=== PATIENT | male | born 1940 | race Caucasian/White ===

== ENCOUNTER 2016-03-15 17:12 | Emergency (ER) | payer OTHER ==
[2016-03-15 17:24] VITALS: TEMP 98.1; BMI 30.4
--- NOTE | 2016-03-15 18:39 | PDOC ---
History of Present Illness - General History Source: Patient Exam Limitations: No Limitations - History of Present Illness Initial Comments: 03/15/16 18:43 The patient is a 76 year old male with history of hypertension, hyperlipidemia, IDDM, cirrhosis of the liver, liver CA, who presents to the ED complaining of 3 days of coughing with chest congestion and associated nausea. Today he noted blood streaked sputum, prompting him to come to the ED. He also complains of left chest wall pain secondary to cough, but states he has been taking Ibuprofen with relief. No fever or chills. No vomiting or diarrhea. PCP: Dr. Ryan Diaz <Yue Carlson - Last Filed: 03/15/16 18:43> <Denisse Hale - Last Filed: 03/15/16 21:31> <Lashell Gallegos - Last Filed: 03/16/16 02:07> - General Chief Complaint: Shortness of Breath Stated Complaint: COUGH Time Seen by Provider: 03/15/16 18:28 Past History <Yue Carlson - Last Filed: 03/15/16 18:43> <Denisse Hale - Last Filed: 03/15/16 21:31> - Past Medical History Diabetes: Yes (IDDM, ESOPHAGEAL VARICES) HTN: Yes Hypercholesterolemia: Yes Liver Disease: Yes (CIRRHOSIS, HEPATIC ENCEPHALOPATHY,liver ca) - Immunization History Immunization Up to Date: Yes - Psycho/Social/Smoking Cessation Hx Anxiety: No Suicidal Ideation: No Smoking Status: No Smoking History: Former smoker Have you smoked in the past 12 months: No Number of Cigarettes Smoked Daily: 2,004 If you are a former smoker, when did you quit?: 2003 Information on smoking cessation initiated: No Hx Alcohol Use: No Drug/Substance Use Hx: No Substance Use Type: None <Lashell Gallegos - Last Filed: 03/16/16 02:07> - Past Medical History Allergies/Adverse Reactions: Allergies Allergy/AdvReac Type Severity Reaction Status Date / Time No Known Allergies Allergy Verified 03/15/16 17:19 Home Medications: Ambulatory Orders Omeprazole [Prilosec] 40 mg PO DAILY 04/22/14 Rifaximin [Xifaxan -] 550 mg PO BID 05/12/15 Tamsulosin HCl [Flomax -] 0.4 mg PO DAILY 06/09/15 Acetaminophen [Tylenol] 650 mg PO Q4H PRN #15 tablet 02/12/16 Furosemide [Lasix -] 20 mg PO DAILY 02/12/16 Insulin Glargine,Hum.rec.anlog [Toujeo Solostar] 15 unit SQ DAILY 02/12/16 Oxybutynin Chloride [Ditropan Xl] 10 mg PO DAILY 02/12/16 Spironolactone [Aldactone -] 100 mg PO DAILY 02/12/16 Albuterol Sulfate Inhaler - [Ventolin Hfa Inhaler -] 1 - 2 inh PO QID PRN #1 inhaler 03/15/16 Azithromycin [Zithromax -] 250 mg PO UTDICT #6 tab 03/15/16 Prednisone [Deltasone -] 20 mg PO DAILY #3 tablet 03/15/16 Review of Systems - Review of Systems Able to Perform ROS?: Yes Comments:: 03/15/16 18:48 CONSTITUTIONAL: Absent: fever, chills, diaphoresis, loss of appetite HEENT: Absent: rhinorrhea, nasal congestion, throat pain, throat swelling, difficulty swallowing, mouth swelling, ear pain, eye pain, visual Changes CARDIOVASCULAR: Absent: chest pain, syncope, palpitations, irregular heart rate, lightheadedness , peripheral edema RESPIRATORY: Present: cough, chest congestion, blood streaked sputum x 1 day Absent: shortness of breath, dyspnea with exertion, orthopnea, wheezing, stridor GASTROINTESTINAL: Present: nausea Absent: abdominal pain, abdominal distension, nausea, vomiting, diarrhea, constipation, melena, hematochezia GENITOURINARY: Absent: dysuria, frequency, urgency, hesitancy, hematuria, flank pain, genital pain MUSCULOSKELETAL: Absent: myalgia, arthralgia, joint swelling SKIN: Absent: rash, itching, pallor HEMATOLOGIC/IMMUNOLOGIC: Absent: easy bleeding, easy bruising, lymphadenopathy, frequent infections ENDOCRINE: Absent: unexplained weight gain, unexplained weight loss, heat intolerance, cold intolerance NEUROLOGIC: Absent: headache, focal weakness or paresthesias, dizziness, unsteady gait, seizure, mental status changes, bladder or bowel incontinence PSYCHIATRIC: Absent: anxiety, depression, suicidal or homicidal ideation, hallucinations. <Yue Carlson - Last Filed: 01/16/17 18:43> *Physical Exam - Vital Signs Last Vital Signs Temp Pulse Resp BP Pulse Ox 98.1 F 70 18 126/71 100 03/15/16 17:21 03/15/16 17:21 03/15/16 17:21 03/15/16 17:21 03/15/16 17:21 - Physical Exam Comments: 03/15/16 18:50 GENERAL: Well developed, well nourished. Awake and alert. No acute distress. Coughing throughout exam. HEENT: Normocephalic, atraumatic. PERRLA, EOMI. No conjunctival pallor. Sclera are non- icteric. Moist mucous membranes. Oropharynx is clear. NECK: Supple. Full ROM. No JVD. Carotid pulses 2+ and symmetric, without bruits. No thyromegaly. No lymphadenopathy. CARDIOVASCULAR: Regular rate and rhythm. No murmurs, rubs, or gallops. Distal pulses are 2+ and symmetric. PULMONARY: No evidence of respiratory distress. Lungs clear to auscultation bilaterally. No wheezing, rales or rhonchi. ABDOMINAL: Soft. Non-tender. Non-distended. No rebound or guarding. No organomegaly. Normoactive bowel sounds. MUSCULOSKELETAL Normal range of motion at all joints. No bony deformities or tenderness. No CVA tenderness. EXTREMITIES: No cyanosis. No clubbing. No edema. No calf tenderness. SKIN: Warm and dry. Normal capillary refill. No rashes. No jaundice. NEUROLOGICAL: Alert, awake, appropriate. Cranial nerves 2-12 intact. No deficits to light touch and temperature in face, upper extremities and lower extremities. No motor deficits in the in face, upper extremities and lower extremities. Normoreflexic in the upper and lower extremities. Normal speech. Toes are down- going bilaterally. Gait is normal without ataxia. PSYCHIATRIC: Cooperative. Good eye contact. Appropriate mood and affect. <Yue Carlson - Last Filed: 03/15/16 18:43> - Vital Signs Last Vital Signs Temp Pulse Resp BP Pulse Ox 98.1 F 70 18 126/71 100 03/15/16 17:21 03/15/16 17:21 03/15/16 17:21 03/15/16 17:21 03/15/16 17:21 <Denisse Hale - Last Filed: 03/15/16 21:31> - Vital Signs Last Vital Signs Temp Pulse Resp BP Pulse Ox 98.1 F 70 18 126/71 100 03/15/16 17:21 03/15/16 17:21 03/15/16 17:21 03/15/16 17:21 03/15/16 17:21 <ElLashelljessica Grady - Last Filed: 03/16/16 02:07> ED Treatment Course - LABORATORY CBC & Chemistry Diagram: 03/15/16 19:04 03/15/16 19:04 - ADDITIONAL ORDERS Additional order review: Laboratory Results 03/15/16 19:04 Sodium 134 L Potassium 4.9 Chloride 103 Carbon Dioxide 24 Anion Gap 7 L BUN 17 D Creatinine 1.3 D Creat Clearance w eGFR 53.53 Random Glucose 347 H* Calcium 7.8 L Total Bilirubin 3.0 H AST 75 H D ALT 28 D Alkaline Phosphatase 421 H D Total Protein 6.2 L Albumin 2.2 L 03/15/16 19:05 Influenza Types A,B Antigen ([place]ADES) - Final Nasopharyngeal Swab - Final 03/15/16 19:04 RBC 3.98 L MCV 97.2 H MCHC 33.1 RDW 16.6 H MPV 11.7 H D Neutrophils % 77.1 D Lymphocytes % 9.8 D Monocytes % 11.2 H Eosinophils % 1.5 Basophils % 0.4 - RADIOLOGY Radiograph Interpretation: 03/15/16 21:32 Chest X-Ray Allowing for technical differences no obvious interval change is seen in comparison to a prior radiographic study of 02/12/2016. There is no discrete infiltrate or pleural effusion. The interstitial markings are again noted to be mildly prominent bilaterally which could be on the basis of chronic lung disease. CT evaluation may be considered, nonemergent unless otherwise clinically indicated. Cardiac size appears borderline in transverse diameter. The hector and mediastinum appear unremarkable as visualized. Impression: As discussed. Reported By: Palmer Tadeo MD - Medications Given in the ED: ED Medications Discontinued Medications Generic Name Dose Route Start Last Admin Trade Name Freq PRN Reason Stop Dose Admin Guaifenesin 10 ml 03/15/16 19:05 03/15/16 19:18 Robitussin Dm - PO 03/15/16 19:06 10 ml ONCE ONE Administration <Denisse Hale - Last Filed: 03/15/16 21:31> - LABORATORY CBC & Chemistry Diagram: 03/15/16 19:04 03/15/16 19:04 <Lashell Gallegos - Last Filed: 03/16/16 02:07> Medical Decision Making - Medical Decision Making 03/16/16 02:05 76-year-old male presents with family because of for 5 days of a junky cough. Didn't have a fever. He has some coarse rhonchi on exam. Patient was not febrile and he was not hypoxic Patient has past medical history of liver cirrhosis, diabetes Chest x-ray did not have any infiltrates or consolidations or effusions, influenza culture was negative CBC was within normal limits Chemistry showed a hyperglycemia patient was given insulin Patient received albuterol, steroids and was started on Zithromax <Lasehll Gallegos - Last Filed: 03/16/16 02:07> *DC/Admit/Observation/Transfer - Attestations Scribe Attestion: 03/15/16 18:50 Documentation prepared by Yue Carlson, acting as hospital medical assistant for Lashell Gallegos MD. <Yue Carlson - Last Filed: 03/15/16 18:43> <Denisse Hale - Last Filed: 03/15/16 21:31> <Lashell Gallegos - Last Filed: 03/16/16 02:07> Diagnosis at time of Disposition: Acute bronchitis Qualifiers: Bronchitis organism: unspecified organism Qualified Code(s): J20.9 - Acute bronchitis, unspecified - Discharge Dispostion Disposition: HOME Condition at time of disposition: Stable - Prescriptions Prescriptions: Prednisone [Deltasone -] 20 mg PO DAILY #3 tablet Albuterol Sulfate Inhaler - [Ventolin Hfa Inhaler -] 1 - 2 inh PO QID PRN #1 inhaler PRN Reason: Wheezing Azithromycin [Zithromax -] 250 mg PO UTDICT #6 tab - Referrals Referrals: STAFF,NOT ON [Primary Care Provider] - - Patient Instructions Printed Discharge Instructions: DI for Acute Bronchitis Additional Instructions: Please followup with your primary physician this week. If you have any worsening symptoms or for new concerning symptoms return to the emergency department. 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
[2016-03-15] MEDS ORDERED: guaiFENesin/D-METHORPHAN HB 10 ML UNIT-DOSE CUPS PO ONE (19:05)
[2016-03-15] MEDS ORDERED: guaiFENesin/D-METHORPHAN HB 10 ML UNIT-DOSE CUPS ONE (19:17)
[2016-03-15 19:19] LABS: BASOPHIL 0.4 % (0-2.0); EOSINOPHIL 1.5 % (0-4.5); MCH 32.2 pg (25.7-33.7); MCHC 33.1 g/dl (32.0-35.9); MEAN CELL VOLUME 97.2 fl (80-96); MEAN PLT VOLUME 11.7 fl (7.5-11.1); NEUTROPHILS 77.1 % (42.8-82.8); RDW 16.6 % (11.9-15.9); WHITE BLOOD COUNT 4.4 K/mm3 (4.0-10.0)
[2016-03-15 20:13] LABS: ALBUMIN 2.2 g/dl (3.4-5.0); CALCIUM 7.8 mg/dL (8.5-10.1); CREATININE 1.3 mg/dL (0.7-1.3); TOT PROT 6.2 g/dl (6.4-8.2)
[2016-03-15 20:22] LABS: PLATELET COUNT 40 K/MM3 (134-434)
[2016-03-15] MEDS ORDERED: ALBUTEROL SO4 2.5/IPRATROPIUM 0.5 INH SOL 3 ML VIAL.NEB. NEB ONE ×2 (21:26→21:49)
[2016-03-15] MEDS ORDERED: ALBUTEROL SO4 0.083% IH SOL 2.5 MG/3 ML VIAL.NEB. NEB ONE (21:26)
[2016-03-15] MEDS ORDERED: predniSONE 20 MG TABLET (UD) ONE (21:39)
[2016-03-15] MEDS ORDERED: HEMOQUE TEST 1 EACH EACH ONE (21:44)
[2016-03-15] MEDS ORDERED: predniSONE 20 MG TABLET (UD) PO ONE (21:50)
[2016-03-15] MEDS ORDERED: INSULIN REGULAR HUMAN 100 UNITS/ML *VIAL ONE (22:24)
[2016-03-15] MEDS ORDERED: AZITHROMYCIN 250 MG TABLET (FP) PO ONE (22:26)
[2016-03-15] MEDS ORDERED: AZITHROMYCIN 250 MG TABLET (FP) ONE (22:36)
[2016-03-15 22:37] VITALS: BP 106/55; PULSE 82
== END 2016-03-15 23:05 | disposition home or self-care (01) ==
LOC: JER 17:12
PROC: 3E0F7GC Introduction of Other Therapeutic Substance into Respiratory Tract, Via Natural or Artificial Opening (ICD-10-PCS; principal; 2016-03-15)
PROC: 3E033VG Introduction of Insulin into Peripheral Vein, Percutaneous Approach (ICD-10-PCS; 2016-03-15)
DX: J20.9 Acute bronchitis, unspecified (principal); I10 Essential (primary) hypertension; E78.00 Pure hypercholesterolemia, unspecified; E11.9 Type 2 diabetes mellitus without complications; Z79.4 Long term (current) use of insulin; K74.69 Other cirrhosis of liver; Z85.05 Personal history of malignant neoplasm of liver
CPT/HCPCS: 36415; 71020-TC; 80053; 85025; 87804; 94640; 96374; 99282-25

== ENCOUNTER 2016-03-25 11:06 | Inpatient (IN) | payer OTHER ==
--- NOTE | 2016-03-25 11:56 | PDOC ---
History of Present Illness - General History Source: Patient Exam Limitations: No Limitations - History of Present Illness Initial Comments: 03/25/16 15:25 The patient is a 76 year old male with significant past medical history of HTN, hyperlipidemia, diabetes, BPH, liver cirrhosis (lactulose 3x a day), liver ca, Guillain [place], chronic thrombocytopenia, ascites, and Alzheimer's dementia, who presents to the ED with daughter after being sent from PCP office for elevated ammonia level and increased confusion. Patient had his blood work done last week by PCP and today he came back for another visit and was sent for increased ammonia level. Patient is more sleepy today and more altered than his baseline and pt had diffficulty walking. As per daughter, the patient had elevated ammonia level in the pas but pt has been taking his lactulose TID as directed. She also notes that the patient had pneumonia last week and finished his last dose of abx on 03/21. PCP - Dr. Ryan VALENCIA - Dr. Duvall <Sophia Rodriguez - Last Filed: 03/25/16 18:01> <Luis Thompson - Last Filed: 03/25/16 19:30> - General Chief Complaint: Revisit, Lab Variance Stated Complaint: PCP SENT Time Seen by Provider: 03/25/16 11:48 Past History <Sophia Rodriguez - Last Filed: 03/25/16 18:01> - Past Medical History Diabetes: Yes (IDDM, ESOPHAGEAL VARICES) HTN: Yes Hypercholesterolemia: Yes Liver Disease: Yes (CIRRHOSIS, HEPATIC ENCEPHALOPATHY,liver ca) - Immunization History Immunization Up to Date: Yes - Psycho/Social/Smoking Cessation Hx Anxiety: No Suicidal Ideation: No Smoking Status: No Smoking History: Former smoker Have you smoked in the past 12 months: No Number of Cigarettes Smoked Daily: 2,004 If you are a former smoker, when did you quit?: 2003 Information on smoking cessation initiated: No Hx Alcohol Use: No Drug/Substance Use Hx: No Substance Use Type: None <Lusi Thompson - Last Filed: 03/25/16 19:30> - Past Medical History Allergies/Adverse Reactions: Allergies Allergy/AdvReac Type Severity Reaction Status Date / Time No Known Allergies Allergy Verified 03/25/16 11:23 Home Medications: Ambulatory Orders Omeprazole [Prilosec] 40 mg PO DAILY 04/22/14 Rifaximin [Xifaxan -] 550 mg PO BID 05/12/15 Tamsulosin HCl [Flomax -] 0.4 mg PO DAILY 06/09/15 Furosemide [Lasix -] 20 mg PO DAILY 02/12/16 Insulin Glargine,Hum.rec.anlog [Toujeo Solostar] 15 unit SQ DAILY 02/12/16 Oxybutynin Chloride [Ditropan Xl] 10 mg PO DAILY 02/12/16 Spironolactone [Aldactone -] 100 mg PO DAILY 02/12/16 Ibuprofen [Motrin -] 800 mg PO TID PRN 03/25/16 Metformin HCl 500 mg PO BID 03/25/16 Zolpidem Tartrate [Ambien] 5 mg PO HS 03/25/16 Review of Systems - Review of Systems Able to Perform ROS?: Yes Comments:: 03/25/16 15:26 CONSTITUTIONAL: No reported: Fever, Chills, Diaphoresis, Generalized Weakness, Malaise, Loss of Appetite HEENT: No reported: Rhinorrhea, Nasal Congestion, Throat Pain, Throat Swelling, Difficulty Swallowing, Mouth Swelling, Ear Pain, Eye Pain, Visual Changes CARDIOVASCULAR: No reported: Chest Pain, Syncope, Palpitations, Irregular Heart Rate, Lightheadedness, Peripheral Edema RESPIRATORY: Reported: cough No reported: Cough, Shortness of Breath, SOB with Exertion, Orthopnea, Wheezing , Stridor, Hemoptysis GASTROINTESTINAL: No reported: Abdominal Distension, abd pain, Nausea, Vomiting, Constipation, Melena, Hematochezia GENITOURINARY: No reported: Dysuria, Frequency, Urgency, Hesitancy, Flank Pain, Genital Pain MUSCULOSKELETAL: No reported: Myalgia, Arthralgia, Joint Swelling, Back pain, Neck Pain SKIN: No reported: Rash, Itching, Pallor HEMATOLOGIC/IMMUNOLOGIC: No reported: Easy Bleeding, Easy Bruising, Lymphadenopathy, Frequent infections ENDOCRINE: No reported: Unexplained Weight Gain, Unexplained Weight Loss, Heat Intolerance , Cold Intolerance NEUROLOGIC: No reported: Headache, Focal Weakness, Paresthesias, Vertigo, Lightheadedness, Unsteady Gait, Seizure, Mental Status Changes, Incontinence PSYCHIATRIC: No reported: Anxiety, Depression <Sophia Rodriguez - Last Filed: 03/25/16 18:01> *Physical Exam - Vital Signs Last Vital Signs Temp Pulse Resp BP Pulse Ox 98.2 F 78 16 103/63 91 L 03/25/16 11:23 03/25/16 11:23 03/25/16 11:23 03/25/16 11:23 03/25/16 11:23 - Physical Exam Comments: 03/25/16 15:26 GENERAL: The patient is sleepy, but arousable to verbal command. AOx1 HEAD: Normocephalic, atraumatic. EYES: extraocular movements intact, icteric sclera ENT: Normal voice, NECK: Normal range of motion, supple LUNGS: Breath sounds equal, clear to auscultation bilaterally. No wheezes, no rhonchi, no rales. HEART: Regular rate and rhythm, normal S1 and S2 without murmur, rub or gallop. ABDOMEN: Soft, slightly distended, nontender, normoactive bowel sounds. No guarding, no rebound. No CVA tenderness EXTREMITIES: Normal range of motion, no edema. No tenderness NEUROLOGICAL: No facial assymetry, Normal speech, withdraws to pain throughout. PSYCH: Normal mood, normal affect. SKIN: Warm, Dry, normal turgor, <Sophia Rodriguez - Last Filed: 03/25/16 18:01> - Vital Signs Last Vital Signs Temp Pulse Resp BP Pulse Ox 98.2 F 78 16 103/63 91 L 03/25/16 11:23 03/25/16 11:23 03/25/16 11:23 03/25/16 11:23 03/25/16 11:23 <Luis Thompson - Last Filed: 03/25/16 19:30> Heart Score/ECG Review - ECG Impressions Comment:: 03/25/16 12:45 Twelve-lead EKG was performed and reviewed by me. There is normal sinus rhythm with a normal rate. Rate of 75 The intervals are normal. There is normal R wave progression There are no ST or T wave abnormalities. Impression: Normal twelve-lead EKG <Luis Thompson - Last Filed: 03/25/16 19:30> ED Treatment Course - LABORATORY CBC & Chemistry Diagram: 03/25/16 11:45 03/25/16 11:45 - ADDITIONAL ORDERS Additional order review: Laboratory Results 03/25/16 03/25/1617 11:58 11:45 11:45 INR VBG pH 7.42 H POC VBG pCO2 38.5 L D POC VBG pO2 28.5 L D Sodium Potassium Chloride Carbon Dioxide Anion Gap BUN Creatinine Creat Clearance w eGFR Random Glucose Calcium Magnesium Total Bilirubin AST ALT Alkaline Phosphatase Ammonia 25.35 Total Protein Albumin Acetone, Qual Negative Blood Type Antibody Screen 03/25/16 03/25/16 03/25/16 11:45 11:45 11:45 INR 2.02 H VBG pH POC VBG pCO2 POC VBG pO2 Sodium 136 Potassium 4.6 Chloride 102 Carbon Dioxide 26 Anion Gap 8 BUN 13 D Creatinine 1.0 D Creat Clearance w eGFR > 60 Random Glucose 188 H D Calcium 8.2 L Magnesium 1.6 L Total Bilirubin 5.3 H D AST 61 H ALT 27 Alkaline Phosphatase 421 H Ammonia Total Protein 7.1 Albumin 2.1 L Acetone, Qual Blood Type B POSITIVE Antibody Screen Negative 03/25/16 11:45 RBC 4.18 MCV 97.9 H MCHC 33.9 RDW 17.0 H MPV 10.1 D Neutrophils % 72.3 Lymphocytes % 12.2 D Monocytes % 12.0 H Eosinophils % 2.8 D Basophils % 0.7 - Medications Given in the ED: ED Medications Discontinued Medications Generic Name Dose Route Start Last Admin Trade Name [place]osua PRN Reason Stop Dose Admin Lactulose 20 gm 03/25/16 12:03 03/25/16 14:36 Cephulac (Oral Use) PO 03/25/16 12:04 20 gm ONCE ONE Administration <Sophia Rodriguez - Last Filed: 03/25/16 18:01> - LABORATORY CBC & Chemistry Diagram: 03/25/16 11:45 03/25/16 11:45 - RADIOLOGY Radiology Studies Ordered: Category Date Time Status HEAD CT WITHOUT CONTRAST [CT] Stat CT Scan 03/25/16 11:50 Ordered CHEST X-RAY PORTABLE* [RAD] Stat Radiology 03/25/16 11:51 Ordered <Luis Thompson - Last Filed: 03/25/16 19:30> Medical Decision Making - Medical Decision Making 03/25/16 16:42 A call was placed to Dr. Olivas at her office. Awaiting call back. 03/25/16 17:17 Second page was placed to Dr. Olivas at her service. Awaiting a call back. 03/25/16 17:26 Case was discussed with Dr. Olivas. A call was placed to [facility]. Awaiting call back from Dr. Lagunas. 03/25/16 17:50 Second page was placed to Dr. Lagunas at her service. 03/25/16 17:55 Case was discussed with Dr. Lagunas. <Sophia Rodriguez - Last Filed: 03/25/16 18:01> - Medical Decision Making 03/25/16 12:04 76y M hx of DM, HTN, HL, liver cirruosis and liver ca presents with AMS - had lab work that showed elevated ammonia level per PMD but that was last week and daughter states that he was normal until today. pts exam shwos a sleepy male that is in no acute distress and awakes to verbal stimulation ?hepatic encephalopathy will r/o occult infection with ua, cxr will ck labs will discus with pmd and GI 03/25/16 16:[address] negative no signs of UTi will discuss with dr. olivas will admit to [facility] 03/25/16 17:[address] olivas agreed with observation for fuerther management of AMS uncler etiology at this time Case discussed in detail with admitting physician including history, physical exam and ancillary studies. Admitting physician has assumed care for the patient, will follow all pending diagnostics and will complete the evaluation and treatment. will otain neuro consult 03/25/16 17:23 03/25/16 17:[address] lagunas requested eeg and starting pt on banana bag <Luis Thompson - Last Filed: 03/25/16 19:30> *DC/Admit/Observation/Transfer - Attestations Scribe Attestion: 03/25/16 15:26 Documentation prepared by MICHAELA Irby, acting as medical administrative specialist for Luis Thompson MD. <Sophia Rodriguez - Last Filed: 03/25/16 18:01> - Discharge Dispostion Admit: Yes <Luis Thompson - Last Filed: 03/25/16 19:30> Diagnosis at time of Disposition: Altered mental state Qualifiers: Altered mental status type: somnolence Qualified Code(s): R40.0 - Somnolence - Discharge Dispostion Condition at time of disposition: Guarded - Referrals Referrals: Ryan Diaz MD [Primary Care Provider] -
[2016-03-25] MEDS ORDERED: LACTULOSE 20 GM/30 ML UDC (FOR ORAL USE ONLY) PO ONE (12:03)
[2016-03-25 12:16] LABS: BASOPHIL 0.7 % (0-2.0); EOSINOPHIL 2.8 % (0-4.5); MCH 33.2 pg (25.7-33.7); MCHC 33.9 g/dl (32.0-35.9); MEAN CELL VOLUME 97.9 fl (80-96); MEAN PLT VOLUME 10.1 fl (7.5-11.1); NEUTROPHILS 72.3 % (42.8-82.8); PLATELET COUNT 66 K/MM3 (134-434); WHITE BLOOD COUNT 4.8 K/mm3 (4.0-10.0)
[2016-03-25 12:19] LABS: VENOUS BLOOD GAS HCO3 24.2 meq/L (22-29); VENOUS PH 7.42 (7.31-7.41)
[2016-03-25 12:29] LABS: INR 2.02 (0.82-1.09); PROTHROMBIN TIME (PATIENT) 22.5 SEC (9.98-11.88)
[2016-03-25 12:45] LABS: ALBUMIN 2.1 g/dl (3.4-5.0); ANION GAP 8 (8-16); BILIRUBIN,TOTAL 5.3 mg/dL (0.2-1.0); CALCIUM 8.2 mg/dL (8.5-10.1); CO2 26 mmol/L (21-32); GLUCOSE,RANDOM 188 mg/dL (74-106); MAGNESIUM 1.6 mg/dL (1.8-2.4); SGOT/AST 61 U/L (15-37); SGPT/ALT 27 U/L (12-78); TOT PROT 7.1 g/dl (6.4-8.2)
[2016-03-25 12:46] LABS: ALK PHOS 421 U/L (45-117)
--- NOTE | 2016-03-25 14:09 | EKG ---
Test Reason : Blood Pressure : / mmHG Vent. Rate : 075 BPM Atrial Rate : 075 BPM P-R Int : 144 ms QRS Dur : 102 ms QT Int : 390 ms P-R-T Axes : 024 -26 029 degrees QTc Int : 435 ms NORMAL SINUS RHYTHM NORMAL ECG WHEN COMPARED WITH ECG OF 13-OCT-2015 15:34, NO SIGNIFICANT CHANGE WAS FOUND Confirmed by LANDRY HANLEY MD ([id number]) on 03/25/2016 2:09:29 PM Referred By: Confirmed By:LANDRY HANLEY MD
[2016-03-25] MEDS ORDERED: LACTULOSE 20 GM/30 ML UDC (FOR ORAL USE ONLY) ONE (14:24)
[2016-03-25 16:01] LABS: URINE APPEARANCE CLEAR; URINE BILIRUBIN NEGATIVE (NEGATIVE); URINE BLOOD NEGATIVE (NEGATIVE); URINE COLOR YELLOW; URINE GLUCOSE (UA) NEGATIVE (NEGATIVE); URINE KETONE NEGATIVE (NEGATIVE); URINE LEUK ESTERASE NEGATIVE (NEGATIVE); URINE NITRITE NEGATIVE (NEGATIVE); URINE PROTEIN NEGATIVE (NEGATIVE); URINE UROBILINOGEN 4.0 E.U/dl E.U./dl (0.2-1.0)
[2016-03-25] MEDS ORDERED: FOLIC ACID INJECTION - 1 MG, THIAMINE HCL 100 MG, MULTIVIT INJECTION ADULT 10 ML in SOD... IVPB ONE (17:54)
[2016-03-25 21:17] LABS: TROPONIN I < 0.02 ng/ml (0.00-0.05)
--- NOTE | 2016-03-26 01:49 | HP ---
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 Hepatobiliary: Yes: Cirrhosis - Smoking History Smoking history: Former smoker Have you smoked in the past 12 months: No Aproximately how many cigarettes per day: 2,004 If you are a former smoker, when did you quit?: 2003 - Alcohol/Substance Use Hx Alcohol Use: No Home Medications - Allergies Allergies/Adverse Reactions: Allergies Allergy/AdvReac Type Severity Reaction Status Date / Time No Known Allergies Allergy Verified 03/25/16 11:23 - Home Medications Home Medications: Ambulatory Orders Omeprazole [Prilosec] 40 mg PO DAILY 04/22/14 Rifaximin [Xifaxan -] 550 mg PO BID 05/12/15 Tamsulosin HCl [Flomax -] 0.4 mg PO DAILY 06/09/15 Furosemide [Lasix -] 20 mg PO DAILY 02/12/16 Insulin Glargine,Hum.rec.anlog [Toujeo Solostar] 15 unit SQ DAILY 02/12/16 Oxybutynin Chloride [Ditropan Xl] 10 mg PO DAILY 02/12/16 Spironolactone [Aldactone -] 100 mg PO DAILY 02/12/16 Ibuprofen [Motrin -] 800 mg PO TID PRN 03/25/16 Metformin HCl 500 mg PO BID 03/25/16 Zolpidem Tartrate [Ambien] 5 mg PO HS 03/25/16 Physical Examination Vital Signs: Vital Signs Temperature 98.2 F 03/25/16 11:23 Pulse Rate 72 03/25/16 18:30 Respiratory Rate 18 03/25/16 18:30 Blood Pressure 110/56 03/25/16 18:30 O2 Sat by Pulse Oximetry (%) 98 03/25/16 18:30
[2016-03-26 06:33] LABS: BASOPHIL 1.2 % (0-2.0); EOSINOPHIL 2.4 % (0-4.5); MCH 33.7 pg (25.7-33.7); MCHC 34.6 g/dl (32.0-35.9); MEAN CELL VOLUME 97.5 fl (80-96); MEAN PLT VOLUME 9.5 fl (7.5-11.1); NEUTROPHILS 73.1 % (42.8-82.8); PLATELET COUNT 59 K/MM3 (134-434); RDW 16.7 % (11.9-15.9); WHITE BLOOD COUNT 3.8 K/mm3 (4.0-10.0)
[2016-03-26 07:11] LABS: ALBUMIN 1.8 g/dl (3.4-5.0); ALK PHOS 313 U/L (45-117); ANION GAP 10 (8-16); BILIRUBIN,TOTAL 6.2 mg/dL (0.2-1.0); CALCIUM 7.8 mg/dL (8.5-10.1); CO2 24 mmol/L (21-32); CREATININE 0.8 mg/dL (0.7-1.3); GLUCOSE,RANDOM 97 mg/dL (74-106); SGOT/AST 52 U/L (15-37); SGPT/ALT 23 U/L (12-78); TOT PROT 6.2 g/dl (6.4-8.2)
[2016-03-26 07:13] LABS: TROPONIN I 0.02 ng/ml (0.00-0.05)
[2016-03-26] MEDS: INSULIN SLIDING SCALE (NOVOLOG) 1 VIAL SQ SCH ×4 (08:38→22:44)
[2016-03-26] MEDS: INSULIN DETEMIR 100 UNITS/ML MDV SQ SCH (08:39)
[2016-03-26] MEDS: metFORMIN HCL 500 MG TABLET (FP) PO SCH ×2 (09:11→17:02)
[2016-03-26] MEDS: SPIRONOLACTONE 25 MG TABLET (FP) PO SCH (09:12)
[2016-03-26] MEDS: TAMSULOSIN HCL 0.4 MG CAP.ER.24H (FP) PO SCH (09:12)
[2016-03-26] MEDS: FUROSEMIDE 20 MG TABLET (FP) PO SCH (09:13)
[2016-03-26] MEDS: SOLIFENACIN SUCCINATE 5 MG TAB (FP) PO SCH (09:13)
[2016-03-26] MEDS: RIFAXIMIN 550 MG TABLET (UD) PO SCH ×2 (09:13→22:44)
[2016-03-26] MEDS: PANTOPRAZOLE 40 MG TABLET (FP) PO SCH (09:13)
[2016-03-26 13:49] VITALS: BMI 28.6
--- NOTE | 2016-03-26 15:05 | CONSULT ---
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 Patient was noted to be more lethargic than baseline with difficulty walking and was found to have increased ammonia. Recently diagnosed with pneumonia. CT head no acute abnormalities. 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 Hepatobiliary: Yes: Cirrhosis - Alcohol/Substance Use Hx Alcohol Use: No - Smoking History Smoking history: Former smoker Have you smoked in the past 12 months: No Aproximately how many cigarettes per day: 2,004 If you are a former smoker, when did you quit?: 2003 Home Medications - Allergies Allergies/Adverse Reactions: Allergies Allergy/AdvReac Type Severity Reaction Status Date / Time No Known Allergies Allergy Verified 03/25/16 11:23 - Home Medications Home Medications: Ambulatory Orders Omeprazole [Prilosec] 40 mg PO DAILY 04/22/14 Rifaximin [Xifaxan -] 550 mg PO BID 05/12/15 Tamsulosin HCl [Flomax -] 0.4 mg PO DAILY 06/09/15 Furosemide [Lasix -] 20 mg PO DAILY 02/12/16 Insulin Glargine,Hum.rec.anlog [Toujeo Solostar] 15 unit SQ DAILY 02/12/16 Oxybutynin Chloride [Ditropan Xl] 10 mg PO DAILY 02/12/16 Spironolactone [Aldactone -] 100 mg PO DAILY 02/12/16 Ibuprofen [Motrin -] 800 mg PO TID PRN 03/25/16 Metformin HCl 500 mg PO BID 03/25/16 Zolpidem Tartrate [Ambien] 5 mg PO HS 03/25/16 Physical Exam Vital Signs: Vital Signs Temperature 97.8 F 03/26/16 13:34 Pulse Rate 78 03/26/16 13:34 Respiratory Rate 16 03/26/16 13:34 Blood Pressure 121/60 03/26/16 13:34 O2 Sat by Pulse Oximetry (%) 96 03/26/16 06:56 Constitutional: Yes: No Distress, Calm Eyes: Yes: Conjunctiva Clear, EOM Intact HENT: Yes: Atraumatic, Normocephalic Neck: Yes: Supple Cardiovascular: Yes: S1, S2 Respiratory: Yes: Regular Neurological: Yes: Other (awake, alert, knows name CNII-XII EOMI, visual chi full, face symmetric, tongue in midline Motor moving all extremities spontaneously no obvious focal weakness Sensory intact to light touch) Labs: CBC, BMP 03/26/16 06:09 03/26/16 06:09 Problem List - Problems (1) Altered mental state Code(s): R41.82 - ALTERED MENTAL STATUS, UNSPECIFIED Qualifiers: Altered mental status type: somnolence Qualified Code(s): R40.0 - Somnolence Assessment/Plan 76 year old man with a history of liver carcinoma, 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 Patient was noted to be more lethargic than baseline with difficulty walking and was found to have increased ammonia. Recently diagnosed with pneumonia. CT head no acute abnormalities. Patient awake, alert, confused, non focal exam. Impression Metabolic encephalopathy Dementia Recommend Infectious workup EEG Need to clarify patient's baseline, can follow up with us as outpatient for dementia workup and treatment Will follow
--- NOTE | 2016-03-26 16:46 | CON.GI ---
Consult Consult Specialty:: GI Referred by:: Ryan Diaz MD Reason for Consultation:: Cirrhosis - History of Present Illness Chief Complaint: AMS History of Present Illness: 76 M with h/o HTN, ESLD, HCC, DM, HLD, BPH, admitted with encephalopathy. 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 Hepatobiliary: Yes: Cirrhosis - Alcohol/Substance Use Hx Alcohol Use: No - Smoking History Smoking history: Former smoker Have you smoked in the past 12 months: No Aproximately how many cigarettes per day: 2,004 If you are a former smoker, when did you quit?: 2003 Home Medications - Allergies Allergies/Adverse Reactions: Allergies Allergy/AdvReac Type Severity Reaction Status Date / Time No Known Allergies Allergy Verified 03/25/16 11:23 - Home Medications Home Medications: Ambulatory Orders Omeprazole [Prilosec] 40 mg PO DAILY 04/22/14 Rifaximin [Xifaxan -] 550 mg PO BID 05/12/15 Tamsulosin HCl [Flomax -] 0.4 mg PO DAILY 06/09/15 Furosemide [Lasix -] 20 mg PO DAILY 02/12/16 Insulin Glargine,Hum.rec.anlog [Toujeo Solostar] 15 unit SQ DAILY 02/12/16 Oxybutynin Chloride [Ditropan Xl] 10 mg PO DAILY 02/12/16 Spironolactone [Aldactone -] 100 mg PO DAILY 02/12/16 Ibuprofen [Motrin -] 800 mg PO TID PRN 03/25/16 Metformin HCl 500 mg PO BID 03/25/16 Zolpidem Tartrate [Ambien] 5 mg PO HS 03/25/16 Physical Exam-GI Vital Signs: Vital Signs Temperature 97.8 F 03/26/16 13:34 Pulse Rate 78 03/26/16 13:34 Respiratory Rate 16 03/26/16 13:34 Blood Pressure 121/60 03/26/16 13:34 O2 Sat by Pulse Oximetry (%) 96 03/26/16 06:56 Constitutional: Yes: Mild Distress HENT: Yes: Normocephalic Neck: Yes: Supple Cardiovascular: Yes: Regular Rate and Rhythm Respiratory: Yes: CTA Bilaterally Labs: CBC, BMP 03/26/16 06:09 03/26/16 06:09 INR, PTT INR 2.02 (0.82-1.09) H 03/25/16 11:45 Assessment/Plan ESLD with encephalopathy Check U/S and AFP lactulose po -NH4 25 Xifaxan 550 BID
[2016-03-26] MEDS ORDERED: INSULIN (NOVOLOG) ASPART 100 UNITS/ML 10ML VIAL ONE (17:01)
--- NOTE | 2016-03-26 22:34 | PN ---
Progress Note, Physician - Current Medication List Current Medications: Active Medications Furosemide (Lasix -) 20 mg PO DAILY [facility] Last Admin: 03/26/16 09:13 Dose: 20 mg Insulin Aspart (Novolog Vial Sliding Scale -) 1 vial SQ [facility] PRN Reason: Protocol Last Admin: 03/26/16 17:02 Dose: 4 units Insulin Detemir (Levemir Vial) 15 units SQ DAILY@0700 [facility] Last Admin: 03/26/16 08:39 Dose: Not Given Metformin HCl (Glucophage -) 500 mg PO BIDAC [facility] Last Admin: 03/26/16 17:02 Dose: 500 mg Pantoprazole Sodium (Protonix -) 40 mg PO DAILY [facility] Last Admin: 03/26/16 09:13 Dose: 40 mg Rifaximin (Xifaxan -) 550 mg PO BID [facility] Last Admin: 03/26/16 09:13 Dose: 550 mg Solifenacin (Vesicare -) 5 mg PO DAILY [facility] Last Admin: 03/26/16 09:13 Dose: 5 mg Spironolactone (Aldactone -) 100 mg PO DAILY [facility] Last Admin: 03/26/16 09:12 Dose: 100 mg Tamsulosin HCl (Flomax -) 0.4 mg PO DAILY@0830 [facility] Last Admin: 03/26/16 09:12 Dose: 0.4 mg - Objective Vital Signs: Vital Signs Temperature 98.1 F 03/26/16 22:09 Pulse Rate 74 03/26/16 22:09 Respiratory Rate 20 03/26/16 22:09 Blood Pressure 99/57 03/26/16 22:09 O2 Sat by Pulse Oximetry (%) 96 03/26/16 06:56 Labs: CBC, BMP 03/26/16 06:09 03/26/16 06:09 INR, PTT INR 2.02 (0.82-1.09) H 03/25/16 11:45
[2016-03-27] MEDS: metFORMIN HCL 500 MG TABLET (FP) PO SCH (07:35)
[2016-03-27] MEDS: INSULIN SLIDING SCALE (NOVOLOG) 1 VIAL SQ SCH ×3 (07:35→21:56)
[2016-03-27] MEDS: INSULIN DETEMIR 100 UNITS/ML MDV SQ SCH (07:35)
[2016-03-27] MEDS: TAMSULOSIN HCL 0.4 MG CAP.ER.24H (FP) PO SCH (09:42)
[2016-03-27] MEDS: SPIRONOLACTONE 25 MG TABLET (FP) PO SCH (09:42)
[2016-03-27] MEDS: SOLIFENACIN SUCCINATE 5 MG TAB (FP) PO SCH (09:43)
[2016-03-27] MEDS: PANTOPRAZOLE 40 MG TABLET (FP) PO SCH (09:43)
[2016-03-27] MEDS: RIFAXIMIN 550 MG TABLET (UD) PO SCH ×2 (09:43→21:56)
[2016-03-27] MEDS: FUROSEMIDE 20 MG TABLET (FP) PO SCH (09:45)
--- NOTE | 2016-03-27 12:08 | PN ---
Progress Note (short form) - Note Progress Note: History of Present Illness: 03/27 Patient seen and examined at bedside with . 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 Patient was noted to be more lethargic than baseline with difficulty walking and was found to have increased ammonia. Recently diagnosed with pneumonia. CT head no acute abnormalities. 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 Hepatobiliary: Yes: Cirrhosis - Alcohol/Substance Use Hx Alcohol Use: No - Smoking History Smoking history: Former smoker Have you smoked in the past 12 months: No Aproximately how many cigarettes per day: 2,004 If you are a former smoker, when did you quit?: 2003 Home Medications - Allergies Allergies/Adverse Reactions: Allergies Allergy/AdvReac Type Severity Reaction Status Date / Time No Known Allergies Allergy Verified 03/25/16 11:23 - Home Medications Home Medications: Ambulatory Orders Omeprazole [Prilosec] 40 mg PO DAILY 04/22/14 Rifaximin [Xifaxan -] 550 mg PO BID 05/12/15 Tamsulosin HCl [Flomax -] 0.4 mg PO DAILY 06/09/15 Furosemide [Lasix -] 20 mg PO DAILY 02/12/16 Insulin Glargine,Hum.rec.anlog [Toujeo Solostar] 15 unit SQ DAILY 02/12/16 Oxybutynin Chloride [Ditropan Xl] 10 mg PO DAILY 02/12/16 Spironolactone [Aldactone -] 100 mg PO DAILY 02/12/16 Ibuprofen [Motrin -] 800 mg PO TID PRN 03/25/16 Metformin HCl 500 mg PO BID 03/25/16 Zolpidem Tartrate [Ambien] 5 mg PO HS 03/25/16 Physical Exam Constitutional: Yes: No Distress, Calm Eyes: Yes: Conjunctiva Clear, EOM Intact HENT: Yes: Atraumatic, Normocephalic Neck: Yes: Supple Cardiovascular: Yes: S1, S2 Respiratory: Yes: Regular Neurological: Yes: Other (awake, alert, knows name, place not month CNII-XII EOMI, visual chi full, face symmetric, tongue in midline Motor moving all extremities spontaneously no obvious focal weakness Sensory intact to light touch) Problem List - Problems (1) Altered mental state Code(s): R41.82 - ALTERED MENTAL STATUS, UNSPECIFIED Qualifiers: Altered mental status type: somnolence Qualified Code(s): R40.0 - Somnolence Assessment/Plan 76 year old man with a history of liver carcinoma, 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 Patient was noted to be more lethargic than baseline with difficulty walking and was found to have increased ammonia. Recently diagnosed with pneumonia. CT head no acute abnormalities. Patient awake, alert, knows name, place, not month (at baseline) Impression Metabolic encephalopathy Dementia Patient appears to be at baseline Likely related to evelated ammonia Patient should follow up with his outside neurologist Please call if further questions Problem List - Problems (1) Altered mental state Code(s): R41.82 - ALTERED MENTAL STATUS, UNSPECIFIED Qualifiers: Altered mental status type: somnolence Qualified Code(s): R40.0 - Somnolence
--- NOTE | 2016-03-27 17:21 | PN ---
Progress Note (short form) - Note Progress Note: Medical coverage for Dr. Stokes Subjective: The patient was seen and examined at the bedside, he is A&Ox1. He has no complaints at this time Current Medications Generic Name Dose Route Start Last Admin Trade Name Akosua PRN Reason Stop Dose Admin Furosemide 20 mg 03/26/16 10:00 03/27/16 09:45 Lasix - PO 20 mg DAILY NO Administration Insulin Aspart 1 vial 03/26/16 07:00 03/27/16 07:35 Novolog Vial Sliding Scale - SQ Not Given ACHS [facility] Protocol Insulin Detemir 15 units 03/26/16 07:00 03/27/16 07:35 Levemir Vial SQ Not Given DAILY@0700 [facility] Metformin HCl 500 mg 03/26/16 07:00 03/27/16 07:35 Glucophage - PO Not Given BIDAC NO Pantoprazole Sodium 40 mg 03/26/16 10:00 03/27/16 09:43 Protonix - PO 40 mg DAILY ON Administration Rifaximin 550 mg 03/26/16 10:00 03/27/16 09:43 Xifaxan - PO 550 mg BID NO Administration Solifenacin 5 mg 03/26/16 10:00 03/27/16 09:43 Vesicare - PO 5 mg DAILY NO Administration Spironolactone 100 mg 03/26/16 10:00 03/27/16 09:42 Aldactone - PO 100 mg DAILY NO Administration Tamsulosin HCl 0.4 mg 03/26/16 08:30 03/27/16 09:42 Flomax - PO 0.4 mg DAILY@0830 NO Administration Objective: Vital Signs Period Temp Pulse Resp BP Sys/Dinero Pulse Ox Last 24 Hr 97.8 F-98.7 F 74-92 18-20 99-118/57-68 Physical Exam: General: NAD, A&Ox1 (person only) Lungs: CTA bilaterally Heart: RRR, S1S2 Abd: Soft, non-tender, distended. Normoactive bowel sounds Ext: Warm, well-perfused. CBCD WBC 3.8 K/mm3 (4.0-10.0) L 03/26/16 06:09 RBC 3.72 M/mm3 (4.00-5.60) L 03/26/16 06:09 Hgb 12.5 GM/dL (11.7-16.9) D 03/26/16 06:09 Hct 36.2 % (35.4-49) 03/26/16 06:09 MCV 97.5 fl (80-96) H 03/26/16 06:09 MCHC 34.6 g/dl (32.0-35.9) 03/26/16 06:09 RDW 16.7 % (11.9-15.9) H 03/26/16 06:09 Plt Count 59 K/MM3 (134-434) L 03/26/16 06:09 MPV 9.5 fl (7.5-11.1) 03/26/16 06:09 CMP Sodium 140 mmol/L (136-145) 03/26/16 06:09 Potassium 4.2 mmol/L (3.5-5.1) 03/26/16 06:09 Chloride 106 mmol/L (98-107) 03/26/16 06:09 Carbon Dioxide 24 mmol/L (21-32) 03/26/16 06:09 Anion Gap 10 (8-16) 03/26/16 06:09 BUN 12 mg/dL (7-18) 03/26/16 06:09 Creatinine 0.8 mg/dL (0.7-1.3) 03/26/16 06:09 Creat Clearance w eGFR > 60 (>60) 03/26/16 06:09 Random Glucose 97 mg/dL (74-106) D 03/26/16 06:09 Calcium 7.8 mg/dL (8.5-10.1) L 03/26/16 06:09 Total Bilirubin 6.2 mg/dL (0.2-1.0) H 03/26/16 06:09 AST 52 U/L (15-37) H 03/26/16 06:09 ALT 23 U/L (12-78) 03/26/16 06:09 Alkaline Phosphatase 313 U/L (45-117) H D 03/26/16 06:09 Total Protein 6.2 g/dl (6.4-8.2) L 03/26/16 06:09 Albumin 1.8 g/dl (3.4-5.0) L 03/26/16 06:09 CARDIAC ENZYMES Creatine Kinase 105 IU/L (39-308) 03/26/16 06:09 Troponin I 0.02 ng/ml (0.00-0.05) 03/26/16 06:09 Microbiology 03/25/16 11:58 Blood - Peripheral Venous Blood Culture - Preliminary NO GROWTH OBTAINED AFTER 48 HOURS, INCUBATION TO CONTINUE FOR 3 DAYS. 03/25/16 11:45 Blood - Peripheral Venous Blood Culture - Preliminary NO GROWTH OBTAINED AFTER 48 HOURS, INCUBATION TO CONTINUE FOR 3 DAYS. Assessment: This is a 76 year old male with PMHx of end stage liver disease, liver cirrhosis, HTN, DM II, BPH, Guillian Sebago, dementia, hepatic encephalopathy, chronic thrombocytopenia who presented to the ED with increased altered mental status Plan: 1) GI: Hepatic encephalopathy 2/2 end stage liver disease - According to chart review, elevated ammonia in pcp office - Ammonia now 25.35, recheck in AM - Continue Lactulose - Continue Rifaximin - Continue aldactone - F/u AFP (elevated previously) - Elevated INR 2/2 liver disease, monitor - Thrombocytopenia 2/2 liver disease, continue to trend, bleeding precautions - F/u liver ultrasound - Appreciate GI consult 2) Endocrine: DM II - Will discontinue Metformin as the patient has severe liver impairment - BGM ACHS - ISS ACHS 3) : BPH - Continue Flomax 4) Cardiology: EF 54% - As evidence on nuclear stress test on 02/02/16. Large zone of inferolateral and lateral fixed defect consistent with infarct - Patient does not recall why he had stress test done - Continue meds as above - Will need to discuss treatment with cardiology 5) F/E/N: - Sodium controlled diet - Monitor electrolytes 6) Prophylaxis: - SCDs bilaterally - OOB ambulating - No chemical dvt prophylaxis given thrombocytopenia 7) Dispo: - Requires continued inpatient care CODE STATUS: FULL CODE Visit type - Emergency Visit Emergency Visit: Yes ED Registration Date: 03/26/16 Care time: The patient presented to the Emergency Department on the above date and was hospitalized for further evaluation of their emergent condition. - New Patient This patient is new to me today: Yes Date on this admission: 03/28/16 - Critical Care Critical Care patient: No
[2016-03-27] MEDS ORDERED: INSULIN (NOVOLOG) ASPART 100 UNITS/ML 10ML VIAL ONE (21:56)
[2016-03-28] MEDS: INSULIN SLIDING SCALE (NOVOLOG) 1 VIAL SQ SCH ×4 (06:21→21:36)
[2016-03-28] MEDS: INSULIN DETEMIR 100 UNITS/ML MDV SQ SCH (06:25)
[2016-03-28 07:37] LABS: MCH 33.6 pg (25.7-33.7); MCHC 34.3 g/dl (32.0-35.9); MEAN PLT VOLUME 9.7 fl (7.5-11.1); PLATELET COUNT 47 K/MM3 (134-434); WHITE BLOOD COUNT 3.1 K/mm3 (4.0-10.0)
[2016-03-28 07:54] LABS: INR 2.17 (0.82-1.09); PROTHROMBIN TIME (PATIENT) 24.3 SEC (9.98-11.88)
[2016-03-28 08:20] LABS: ALBUMIN 1.8 g/dl (3.4-5.0); ANION GAP 9 (8-16); CALCIUM 7.8 mg/dL (8.5-10.1); CO2 25 mmol/L (21-32); GLUCOSE,RANDOM 100 mg/dL (74-106)
[2016-03-28 08:23] LABS: ALK PHOS 312 U/L (45-117); BILIRUBIN,TOTAL 4.5 mg/dL (0.2-1.0); CREATININE 0.9 mg/dL (0.7-1.3); SGOT/AST 51 U/L (15-37); SGPT/ALT 20 U/L (12-78)
[2016-03-28] MEDS: TAMSULOSIN HCL 0.4 MG CAP.ER.24H (FP) PO SCH (09:53)
[2016-03-28] MEDS: PANTOPRAZOLE 40 MG TABLET (FP) PO SCH (09:53)
[2016-03-28] MEDS: RIFAXIMIN 550 MG TABLET (UD) PO SCH ×2 (09:53→21:37)
[2016-03-28] MEDS: FUROSEMIDE 20 MG TABLET (FP) PO SCH (09:54)
[2016-03-28] MEDS: SOLIFENACIN SUCCINATE 5 MG TAB (FP) PO SCH (09:54)
[2016-03-28] MEDS: SPIRONOLACTONE 25 MG TABLET (FP) PO SCH (09:54)
[2016-03-28] MEDS ORDERED: INSULIN (NOVOLOG) ASPART 100 UNITS/ML 10ML VIAL ONE ×2 (11:30→16:43)
--- NOTE | 2016-03-28 12:32 | PN ---
Progress Note, Physician - Current Medication List Current Medications: Active Medications Furosemide (Lasix -) 20 mg PO DAILY [facility] Last Admin: 03/28/16 09:54 Dose: 20 mg Insulin Aspart (Novolog Vial Sliding Scale -) 1 vial SQ [facility] OF [facility] PRN Reason: Protocol Last Admin: 03/28/16 11:33 Dose: 2 units Insulin Detemir (Levemir Vial) 15 units SQ DAILY@0700 [facility] Last Admin: 03/28/16 06:25 Dose: 15 units Pantoprazole Sodium (Protonix -) 40 mg PO DAILY [facility] Last Admin: 03/28/16 09:53 Dose: 40 mg Rifaximin (Xifaxan -) 550 mg PO BID [facility] Last Admin: 03/28/16 09:53 Dose: 550 mg Solifenacin (Vesicare -) 5 mg PO DAILY [facility] Last Admin: 03/28/16 09:54 Dose: 5 mg Spironolactone (Aldactone -) 100 mg PO DAILY [facility] Last Admin: 03/28/16 09:54 Dose: 100 mg Tamsulosin HCl (Flomax -) 0.4 mg PO DAILY@0830 [facility] Last Admin: 03/28/16 09:53 Dose: 0.4 mg - Objective Vital Signs: Vital Signs Temperature 98.0 F 03/28/16 06:00 Pulse Rate 64 03/28/16 06:00 Respiratory Rate 18 03/28/16 06:00 Blood Pressure 111/62 03/28/16 06:00 O2 Sat by Pulse Oximetry (%) 98 03/27/16 21:00 Cardiovascular: Yes: Regular Rate and Rhythm Respiratory: Yes: Regular, CTA Bilaterally Gastrointestinal: Yes: Normal Bowel Sounds, Soft Neurological: Yes: Alert, Confusion Labs: CBC, BMP 03/28/16 06:45 03/28/16 06:45 INR, PTT INR 2.17 (0.82-1.09) H 03/28/16 06:45 Problem List - Problems (1) Hepatic encephalopathy Assessment/Plan: - Ammonia now 25.35, recheck in AM - Continue Lactulose - Continue Rifaximin - Continue aldactone - F/u AFP (elevated previously) - Elevated INR 2/2 liver disease, monitor - Thrombocytopenia 2/2 liver disease, continue to trend, bleeding precautions - F/u liver ultrasound - Appreciate GI consult Code(s): K72.90 - HEPATIC FAILURE, UNSPECIFIED WITHOUT COMA (2) Altered mental state Assessment/Plan: as above Code(s): R41.82 - ALTERED MENTAL STATUS, UNSPECIFIED Qualifiers: Altered mental status type: somnolence Qualified Code(s): R40.0 - Somnolence (3) Diabetes Assessment/Plan: [facility] Code(s): E11.9 - TYPE 2 DIABETES MELLITUS WITHOUT COMPLICATIONS Qualifiers: Diabetes mellitus type: type 1 Diabetes mellitus complication status: without complication Qualified Code(s): E10.9 - Type 1 diabetes mellitus without complications (4) Elevated liver enzymes Assessment/Plan: MONITOR GI ON CASE Code(s): R74.8 - ABNORMAL LEVELS OF OTHER SERUM ENZYMES (5) Thrombocytopenia Assessment/Plan: MONITOR Code(s): D69.6 - THROMBOCYTOPENIA, UNSPECIFIED
[2016-03-29] MEDS: INSULIN SLIDING SCALE (NOVOLOG) 1 VIAL SQ SCH ×2 (06:37→12:30)
[2016-03-29] MEDS: INSULIN DETEMIR 100 UNITS/ML MDV SQ SCH (06:37)
[2016-03-29] MEDS: SPIRONOLACTONE 25 MG TABLET (FP) PO SCH (09:41)
[2016-03-29] MEDS: RIFAXIMIN 550 MG TABLET (UD) PO SCH (09:41)
[2016-03-29] MEDS: PANTOPRAZOLE 40 MG TABLET (FP) PO SCH (09:41)
[2016-03-29] MEDS: SOLIFENACIN SUCCINATE 5 MG TAB (FP) PO SCH (09:42)
[2016-03-29] MEDS: FUROSEMIDE 20 MG TABLET (FP) PO SCH (09:42)
[2016-03-29] MEDS: TAMSULOSIN HCL 0.4 MG CAP.ER.24H (FP) PO SCH (09:42)
--- NOTE | 2016-03-29 12:08 | DS ---
Physical Examination Vital Signs: Vital Signs Temperature 97.8 F 03/29/16 09:00 Pulse Rate 80 03/29/16 09:00 Respiratory Rate 20 03/29/16 09:00 Blood Pressure 116/65 03/29/16 09:00 O2 Sat by Pulse Oximetry (%) 97 03/29/16 10:00 Constitutional: Yes: Calm Neck: Yes: Trachea Midline Cardiovascular: Yes: Regular Rate and Rhythm, S1, S2 Respiratory: Yes: CTA Bilaterally Gastrointestinal: Yes: Normal Bowel Sounds, Soft Edema: No Neurological: Yes: Alert, Oriented (to name and regonizes daughter) Labs: CBC, BMP 03/28/16 06:45 03/28/16 06:45 Discharge Summary Reason For Visit: ALTERED MENTAL STATUS Current Active Problems Altered mental state (Acute) Hospital Course: The patient is a 76 year old male with significant past medical history of HTN, hyperlipidemia, diabetes, BPH, liver cirrhosis (lactulose 3x a day), liver ca, Guillain Scribner, chronic thrombocytopenia, ascites, and Alzheimer's dementia, who presents to the ED with daughter after being sent from PCP office for elevated ammonia level and increased confusion. Patient had his blood work done last week by PCP and today he came back for another visit and was sent for increased ammonia level. Patient is more sleepy today and more altered than his baseline and pt had diffficulty walking. As per daughter, the patient had elevated ammonia level in the pas but pt has been taking his lactulose TID as directed. She also notes that the patient had pneumonia last week and finished his last dose of abx on 03/21. PCP - Dr. Ryan Diaz GI - Dr. 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 stop metformin given liver disease Condition: Guarded - Instructions Referrals: Ryan Diaz MD [Primary Care Provider] - Disposition: HOME - Home Medications Comprehensive Discharge Medication List: Ambulatory Orders Omeprazole [Prilosec] 40 mg PO DAILY 04/22/14 Rifaximin [Xifaxan -] 550 mg PO BID 05/12/15 Tamsulosin HCl [Flomax -] 0.4 mg PO DAILY 06/09/15 Furosemide [Lasix -] 20 mg PO DAILY 02/12/16 Insulin Glargine,Hum.rec.anlog [Marissa Rothman] 15 unit SQ DAILY 02/12/16 Oxybutynin Chloride [Ditropan Xl] 10 mg PO DAILY 02/12/16 Spironolactone [Aldactone -] 100 mg PO DAILY 02/12/16 Ibuprofen [Motrin -] 800 mg PO TID PRN 03/25/16 Metformin HCl 500 mg PO BID 03/25/16 Zolpidem Tartrate [Ambien] 5 mg PO HS 03/25/16
[2016-03-29] MEDS ORDERED: LACTULOSE 20 GM/30 ML UDC (FOR ORAL USE ONLY) PO SCH (12:15)
[2016-03-29] MEDS ORDERED: INSULIN (NOVOLOG) ASPART 100 UNITS/ML 10ML VIAL ONE (12:32)
[2016-03-29 15:15] VITALS: BP 95/51; PULSE 75; TEMP 97.7
== END 2016-03-29 15:28 | disposition home or self-care (01) | DRG 442 ==
LOC: JER 11:06 → UNDOADMOB 19:30 → JERBED 19:30 → OBSVTOIN 03-26 01:42 → J6S 03-26 13:09
PROVIDERS: ADMIT Internal Medicine; ATTEND Internal Medicine
DX: K72.90 Hepatic failure, unspecified without coma (principal); C22.0 Liver cell carcinoma; R41.82 Altered mental status, unspecified; E11.9 Type 2 diabetes mellitus without complications; D69.6 Thrombocytopenia, unspecified; G30.9 Alzheimer's disease, unspecified; F02.80 Dementia in other diseases classified elsewhere, unspecified severity, without behavioral disturbance, psychotic disturbance, mood disturbance, and anxiety; R74.8 Abnormal levels of other serum enzymes; Z87.891 Personal history of nicotine dependence
CPT/HCPCS: 36415; 70450-TC; 71010-TC; 76705-TC; 80053; 81003; 82009; 82105; 82140; 82550; 82803; 83735; 84484; 85025; 85027; 85610; 86850; 86900; 86901; 87040; 93005; 93010; 95816; 99285-25

== ENCOUNTER 2016-07-31 22:50 | Emergency (ER) | payer OTHER ==
[2016-07-31 22:59] VITALS: TEMP 98.1; BMI 30.1
--- NOTE | 2016-07-31 23:21 | PDOC ---
History of Present Illness - General History Source: Patient, Family Exam Limitations: Dementia - History of Present Illness Initial Comments: 07/31/16 23:48 The patient is a 76 year old male, with significant past medical history of Alzheimers, HTN, HLD, IDDM, BPH, liver cirrhosis, liver cancer, Guillain Ackworth , chronic thrombocytopenia, and ascites, who presents today with his daughter complaining of increased confusion. The patient wandered out of the house this morning and got lost. The police found the patient and contacted the family. The daughter states that the patient is more confused than usual and cannot hold a conversation like he usually does. Denies any pain at this time. Denies fever, nausea, chills, vomiting. Allergies: none reported PCP- Dr. Ryan Diaz <Gail Zuleta - Last Filed: 08/01/16 00:24> <Asha Olivares - Last Filed: 08/01/16 02:07> - General Chief Complaint: Altered Mental Status Stated Complaint: EVALUATION Time Seen by Provider: 07/31/16 23:20 Past History <Gail Zuleta - Last Filed: 08/01/16 00:24> - Past Medical History Diabetes: Yes (IDDM, ESOPHAGEAL VARICES) HTN: Yes Hypercholesterolemia: Yes Liver Disease: Yes (CIRRHOSIS, HEPATIC ENCEPHALOPATHY,liver ca) - Immunization History Immunization Up to Date: Yes - Psycho/Social/Smoking Cessation Hx Anxiety: No Suicidal Ideation: No Smoking Status: No Smoking History: Former smoker Have you smoked in the past 12 months: No Number of Cigarettes Smoked Daily: 2,004 If you are a former smoker, when did you quit?: 2003 Information on smoking cessation initiated: No Hx Alcohol Use: No Drug/Substance Use Hx: No Substance Use Type: None <Asha Olivares - Last Filed: 08/01/16 02:07> - Past Medical History Allergies/Adverse Reactions: Allergies Allergy/AdvReac Type Severity Reaction Status Date / Time No Known Allergies Allergy Verified 07/31/16 22:55 Home Medications: Ambulatory Orders Omeprazole [Prilosec] 40 mg PO DAILY 04/22/14 Rifaximin [Xifaxan -] 550 mg PO BID 05/12/15 Tamsulosin HCl [Flomax -] 0.4 mg PO DAILY 06/09/15 Furosemide [Lasix -] 20 mg PO DAILY 02/12/16 Insulin Glargine,Hum.rec.anlog [Toujeo Solostar] 15 unit SQ DAILY 02/12/16 Oxybutynin Chloride [Ditropan Xl] 10 mg PO DAILY 02/12/16 Spironolactone [Aldactone -] 100 mg PO DAILY 02/12/16 Lactulose (Oral Use) [Cephulac -] 20 gm PO DAILY #120 ml 03/29/16 Review of Systems - Review of Systems Able to Perform ROS?: Yes Comments:: 07/31/16 23:49 GENERAL/CONSTITUTIONAL: No fever or chills. No weakness. HEAD, EYES, EARS, NOSE AND THROAT: No change in vision. No ear pain or discharge. No sore throat. CARDIOVASCULAR: No chest pain or shortness of breath. RESPIRATORY: No cough, wheezing, or hemoptysis. GASTROINTESTINAL: No nausea, vomiting, diarrhea or constipation. GENITOURINARY: No dysuria, frequency, or change in urination. MUSCULOSKELETAL: No joint or muscle swelling or pain. No neck or back pain. SKIN: No rash NEUROLOGIC: No headache, vertigo, loss of consciousness, or change in strength/ sensation. ENDOCRINE: No increased thirst. No abnormal weight change. HEMATOLOGIC/LYMPHATIC: No anemia, easy bleeding, or history of blood clots. ALLERGIC/IMMUNOLOGIC: No hives or skin allergy. <Gail Zuleta - Last Filed: 08/01/16 00:24> *Physical Exam - Vital Signs Last Vital Signs Temp Pulse Resp BP Pulse Ox 98.1 F 100 H 20 143/71 91 L 07/31/16 22:55 07/31/16 22:55 07/31/16 22:55 07/31/16 22:55 07/31/16 22:55 - Physical Exam Comments: 07/31/16 23:49 GENERAL: Awake, alert, and oriented x2, in no acute distress HEAD: No signs of trauma EYES: PERRLA, EOMI, sclera anicteric, conjunctiva clear ENT: Auricles normal inspection, hearing grossly normal, nares patent, oropharynx clear without exudates. Moist mucosa NECK: Normal ROM, supple, no lymphadenopathy, JVD, or masses LUNGS: Breath sounds equal, clear to auscultation bilaterally. No wheezes, and no crackles HEART: Regular rate and rhythm, normal S1 and S2, no murmurs, rubs or gallops ABDOMEN: Soft, nontender, normoactive bowel sounds. No guarding, no rebound. No masses EXTREMITIES: Normal range of motion, no edema. No clubbing or cyanosis. No cords, erythema, or tenderness NEUROLOGICAL: Cranial nerves II through XII grossly intact. Normal speech. SKIN: Warm, Dry, normal turgor, no rashes or lesions noted. <Gail Zuleta - Last Filed: 08/01/16 00:24> - Vital Signs Last Vital Signs Temp Pulse Resp BP Pulse Ox 98.1 F 100 H 20 143/71 91 L 07/31/16 22:55 07/31/16 22:55 07/31/16 22:55 07/31/16 22:55 07/31/16 22:55 <Asha Olivares - Last Filed: 08/01/16 02:07> ED Treatment Course - LABORATORY CBC & Chemistry Diagram: 07/31/16 23:50 07/31/16 23:50 - ADDITIONAL ORDERS Additional order review: Laboratory Results 07/31/16 23:20 POC Glucometer [id number] 07/31/16 23:20 POC Glucometer [id number] - RADIOLOGY Radiograph Interpretation: 08/01/16 00:24 Exam: Noncontrast CT head Images: 72 Clinical indication: Altered mental status. Findings: Multiple axial images were obtained of the brain without contrast. There is no mass-effect, midline shift or hemorrhage. There is no intra-axial or extra-axial fluid collection. Atrophic involutional changes are noted and are relatively mild for the patient's stated age. The visualized portions of the paranasal sinuses are clear. The middle ear cavities and mastoids are clear. Impression: No mass effect or intracranial hemorrhage. No acute abnormality seen. THIS DOCUMENT HAS BEEN ELECTRONICALLY SIGNED Stan Barrow M.D. 08/01/2016 00: 21 OSMAR Ding Please call [facility] [phone] ([phone]) with questions. <Gail Zuleta - Last Filed: 08/01/16 00:24> - LABORATORY CBC & Chemistry Diagram: 07/31/16 23:50 07/31/16 23:50 <Asha Olivares - Last Filed: 08/01/16 02:07> Medical Decision Making - Medical Decision Making 08/01/16 00:17 Pt presents to the ED after found by police wandering outside. Family reports that he has a history of dementia and is always confused, but they report that he is more confused and less able to have a conversation than normal. Patient left his house this AM and took a bus on his own. Patient is oriented x 2, but is conversant in the ED and denies complaints. Will check basic labs and CT head to rule out intracranial or infectious causes for his confusion. Despite family's report, patient does appear close to his baseline. Will likely discharge home if work up is negative. 08/01/16 02:[address] head are negative. Will discharge patient home. <Asha Olivares - Last Filed: 08/01/16 02:07> *DC/Admit/Observation/Transfer - Attestations Scribe Attestion: 07/31/16 23:50 Documentation prepared by MICHAELA Garnica, acting as medical support assistant for Asha Olivares MD. <Gail Zuleta - Last Filed: 08/01/16 00:24> - Discharge Dispostion Admit: No <Asha Olivares - Last Filed: 08/01/16 02:07> Diagnosis at time of Disposition: Dementia - Discharge Dispostion Disposition: HOME Condition at time of disposition: Good
[2016-08-01 00:06] LABS: BASOPHIL 0.3 % (0-2.0); EOSINOPHIL 1.1 % (0-4.5); MCH 31.4 pg (25.7-33.7); MCHC 33.4 g/dl (32.0-35.9); MEAN CELL VOLUME 94.1 fl (80-96); MEAN PLT VOLUME 10.1 fl (7.5-11.1); NEUTROPHILS 78.1 % (42.8-82.8); PLATELET COUNT 39 K/MM3 (134-434); RDW 17.8 % (11.9-15.9); WHITE BLOOD COUNT 4.1 K/mm3 (4.0-10.0)
[2016-08-01 00:35] LABS: ALBUMIN 2.2 g/dl (3.4-5.0); ANION GAP 12 (8-16); BILIRUBIN,TOTAL 3.9 mg/dL (0.2-1.0); CALCIUM 8.5 mg/dL (8.5-10.1); CO2 23 mmol/L (21-32); COCKROFT - GAULT 61.33; CREATININE 1.1 mg/dL (0.7-1.3); GLUCOSE,RANDOM 279 mg/dL (74-106); SGOT/AST 53 U/L (15-37); SGPT/ALT 16 U/L (12-78); TOT PROT 6.2 g/dl (6.4-8.2)
[2016-08-01 00:36] LABS: ALK PHOS 295 U/L (45-117)
[2016-08-01 00:54] LABS: PLATELET ESTIMATE DECREASED (NORMAL)
[2016-08-01 00:55] LABS: PLATELET COMMENT2 NO CLOTTING DETECTED; PLATELET COMMENT3 FEW GIANT PLTS
[2016-08-01 01:56] LABS: URINE APPEARANCE CLEAR; URINE BILIRUBIN NEGATIVE (NEGATIVE); URINE BLOOD NEGATIVE (NEGATIVE); URINE COLOR YELLOW; URINE GLUCOSE (UA) 3+ (NEGATIVE); URINE KETONE TRACE (NEGATIVE); URINE LEUK ESTERASE NEGATIVE (NEGATIVE); URINE NITRITE NEGATIVE (NEGATIVE); URINE PROTEIN NEGATIVE (NEGATIVE); URINE UROBILINOGEN 2.0 E.U/dl E.U./dl (0.2-1.0)
[2016-08-01 02:18] VITALS: BP 110/56; PULSE 80
== END 2016-08-01 02:59 | disposition home or self-care (01) ==
LOC: JER 22:50
DX: G30.8 Other Alzheimer's disease (principal); F02.80 Dementia in other diseases classified elsewhere, unspecified severity, without behavioral disturbance, psychotic disturbance, mood disturbance, and anxiety; I10 Essential (primary) hypertension; E11.9 Type 2 diabetes mellitus without complications; Z79.4 Long term (current) use of insulin; N40.0 Benign prostatic hyperplasia without lower urinary tract symptoms; K74.69 Other cirrhosis of liver; Z85.05 Personal history of malignant neoplasm of liver
CPT/HCPCS: 36415; 70450-TC; 80053; 81003; 85025; 99281-25

== ENCOUNTER 2016-09-24 14:36 | Inpatient (IN) | payer OTHER ==
--- NOTE | 2016-09-24 16:29 | PDOC ---
History of Present Illness <Juliet Marte - Last Filed: 09/24/16 18:43> - General History Source: Family Exam Limitations: Clinical Condition - History of Present Illness Initial Comments: 76 yo M hx DM, liver CA presents with progressively worsening AMS for past few weeks. He has been compliant with his medications including lactulose, but family expresses concern that his ammonia is elevated. He was admitted for the same in July. No recent fevers, chills, SOB, cp. He has fallen twice at home in the past week. History obtained from family, as patient is mostly nonverbal at present (this has happened with the hepatic encephalopathy in the past). <Yessi Rollins - Last Filed: 09/24/16 21:43> - General Chief Complaint: Altered Mental Status Stated Complaint: WEAKNESS Time Seen by Provider: 09/24/16 16:23 Past History <Juliet Marte - Last Filed: 09/24/16 18:43> - Past Medical History Diabetes: Yes (IDDM, ESOPHAGEAL VARICES) HTN: Yes Hypercholesterolemia: Yes Liver Disease: Yes (CIRRHOSIS, HEPATIC ENCEPHALOPATHY,liver ca) - Immunization History Immunization Up to Date: Yes - Psycho/Social/Smoking Cessation Hx Anxiety: No Suicidal Ideation: No Smoking Status: No Smoking History: Former smoker Have you smoked in the past 12 months: No Number of Cigarettes Smoked Daily: 2,004 If you are a former smoker, when did you quit?: 2003 Information on smoking cessation initiated: No Hx Alcohol Use: No Drug/Substance Use Hx: No Substance Use Type: None <Yessi Rollins - Last Filed: 09/24/16 21:43> - Past Medical History Allergies/Adverse Reactions: Allergies Allergy/AdvReac Type Severity Reaction Status Date / Time No Known Allergies Allergy Verified 09/24/16 15:42 Home Medications: Ambulatory Orders B Complex with Vitamin C [B-Complex with C] 1 each PO DAILY 09/24/16 Ferrous Sulfate [Feosol] 325 mg PO DAILY 09/24/16 Folic Acid 1 mg PO DAILY 09/24/16 Furosemide [Lasix] 20 mg PO DAILY 09/24/16 Lactulose 10 gm PO DAILY 09/24/16 Lipase/Protease/Amylase [Creon Dr 24,000 Units Capsule] 1 each PO DAILY Multivitamin [Poly-Vitamin] 1 each PO DAILY 09/24/16 Omeprazole 40 mg PO DAILY 09/24/16 Prednisolone 1% Ophthalmic [Pred Forte 1% -] 0 ml OU DAILY 09/24/16 Rifaximin [Xifaxan] 550 mg PO DAILY 09/24/16 Spironolactone [Aldactone] 50 mg PO DAILY 09/24/16 Tamsulosin HCl [Flomax] 0.4 mg PO DAILY 09/24/16 Zolpidem Tartrate [Ambien] 5 mg PO DAILY 09/24/16 Review of Systems - Review of Systems Able to Perform ROS?: No (AMS) <Yessi Rollins - Last Filed: 09/24/16 21:43> *Physical Exam - Vital Signs Last Vital Signs Temp Pulse Resp BP Pulse Ox 97.8 F 78 20 116/69 98 09/24/16 15:38 09/24/16 15:38 09/24/16 15:38 09/24/16 15:38 09/24/16 15:38 <Juliet Marte - Last Filed: 09/24/16 18:43> - Vital Signs Last Vital Signs Temp Pulse Resp BP Pulse Ox 97.8 F 78 20 116/69 98 09/24/16 15:38 09/24/16 15:38 09/24/16 15:38 09/24/16 15:38 09/24/16 15:38 - Physical Exam Comments: GENERAL: Awake, alert, in no acute distress HEAD: No signs of trauma EYES: PERRLA, EOMI, sclera anicteric, conjunctiva clear ENT: Auricles normal inspection, hearing grossly normal, nares patent, oropharynx clear without exudates. Moist mucosa NECK: Normal ROM, supple, no lymphadenopathy, JVD, or masses LUNGS: Breath sounds equal, clear to auscultation bilaterally. No wheezes, and no crackles HEART: Regular rate and rhythm, normal S1 and S2, no murmurs, rubs or gallops ABDOMEN: Soft, distended with fluid wave, nontender, normoactive bowel sounds. No guarding, no rebound. No masses EXTREMITIES: Normal range of motion, no edema. No clubbing or cyanosis. No cords, erythema, or tenderness. Slight tremors to the hands B/L. NEUROLOGICAL: Cranial nerves II through XII grossly intact. Motor and sensation intact. SKIN: Warm, Dry, normal turgor, no rashes or lesions noted. <Yessi Rollins - Last Filed: 09/24/16 21:43> ED Treatment Course - LABORATORY CBC & Chemistry Diagram: 09/24/16 16:51 09/24/16 16:51 - ADDITIONAL ORDERS Additional order review: Laboratory Results 09/24/16 09/24/16 16:51 16:51 Sodium 135 L Potassium 4.2 Chloride 104 Carbon Dioxide 24 Anion Gap 7 L BUN 11 D Creatinine 1.0 Creat Clearance w eGFR > 60 Random Glucose 414 H* D Calcium 8.1 L Total Bilirubin 4.0 H AST 41 H D ALT 13 Alkaline Phosphatase 259 H Ammonia 101.55 H Total Protein 5.9 L Albumin 2.1 L 09/24/16 16:51 RBC 3.83 L MCV 99.6 H MCHC 33.2 RDW 17.7 H MPV 10.4 Neutrophils % 76.1 Lymphocytes % 13.0 D Monocytes % 8.4 Eosinophils % 2.0 D Basophils % 0.5 <Juliet Marte - Last Filed: 09/24/16 18:43> - LABORATORY CBC & Chemistry Diagram: 09/24/16 16:51 09/24/16 16:51 <Yessi Rollins - Last Filed: 09/24/16 21:43> Medical Decision Making - Medical Decision Making 09/24/16 18:43 Dr. Stokes was paged and notified via phone service. <Juliet Marte - Last Filed: 09/24/16 18:43> - Medical Decision Making Case d/w Dr. Stokes, will admit for hepatic encephalopathy. <Yessi Rollins - Last Filed: 09/24/16 21:43> *DC/Admit/Observation/Transfer <Juliet Marte - Last Filed: 09/24/16 18:43> - Discharge Dispostion Admit: Yes <Yessi Rollins - Last Filed: 09/24/16 21:43> Diagnosis at time of Disposition: Hepatic encephalopathy, Hyperglycemia - Discharge Dispostion Condition at time of disposition: Stable - Referrals
[2016-09-24 16:56] LABS: BASOPHIL 0.5 % (0-2.0); MCH 33.1 pg (25.7-33.7); MCHC 33.2 g/dl (32.0-35.9); MEAN CELL VOLUME 99.6 fl (80-96); MEAN PLT VOLUME 10.4 fl (7.5-11.1); NEUTROPHILS 76.1 % (42.8-82.8); RDW 17.7 % (11.9-15.9); WHITE BLOOD COUNT 2.7 K/mm3 (4.0-10.0)
[2016-09-24 17:02] LABS: PLATELET COUNT 33 K/MM3 (134-434)
[2016-09-24 17:21] LABS: ALBUMIN 2.1 g/dl (3.4-5.0); ALK PHOS 259 U/L (45-117); ANION GAP 7 (8-16); CALCIUM 8.1 mg/dL (8.5-10.1); CO2 24 mmol/L (21-32); SGOT/AST 41 U/L (15-37); SGPT/ALT 13 U/L (12-78); TOT PROT 5.9 g/dl (6.4-8.2)
[2016-09-24 17:23] LABS: GLUCOSE,RANDOM 414 mg/dL (74-106)
[2016-09-24 17:53] LABS: PLATELET COMMENT2 NO CLUMPING NOTED; PLATELET COMMENT3 RARE GIANT PLTS; PLATELET ESTIMATE MARKEDLY DECREASED (NORMAL)
[2016-09-24] MEDS ORDERED: INSULIN REGULAR HUMAN 100 UNITS/ML *VIAL SQ ONE (18:57)
[2016-09-24 19:51] LABS: URINE APPEARANCE CLEAR; URINE BILIRUBIN NEGATIVE (NEGATIVE); URINE BLOOD NEGATIVE (NEGATIVE); URINE COLOR YELLOW; URINE GLUCOSE (UA) 3+ (NEGATIVE); URINE KETONE NEGATIVE (NEGATIVE); URINE LEUK ESTERASE NEGATIVE (NEGATIVE); URINE NITRITE NEGATIVE (NEGATIVE); URINE PROTEIN NEGATIVE (NEGATIVE); URINE UROBILINOGEN 4.0 E.U/dl mg/dL (0.2-1.0)
--- NOTE | 2016-09-25 03:44 | HP ---
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: Alzheimer's, Dementia Hepatobiliary: Yes: Cirrhosis - Smoking History Smoking history: Former smoker Have you smoked in the past 12 months: No Aproximately how many cigarettes per day: 2,004 If you are a former smoker, when did you quit?: 2004 - Alcohol/Substance Use Hx Alcohol Use: No Home Medications - Allergies Allergies/Adverse Reactions: Allergies Allergy/AdvReac Type Severity Reaction Status Date / Time No Known Allergies Allergy Verified 09/24/16 15:42 - Home Medications Home Medications: Ambulatory Orders B Complex with Vitamin C [B-Complex with C] 1 each PO DAILY 09/24/16 Ferrous Sulfate [Feosol] 325 mg PO DAILY 09/24/16 Folic Acid 1 mg PO DAILY 09/24/16 Furosemide [Lasix] 20 mg PO DAILY 09/24/16 Lactulose 10 gm PO DAILY 09/24/16 Lipase/Protease/Amylase [Sidney Apple 24,000 Units Capsule] 1 each PO DAILY Multivitamin [Poly-Vitamin] 1 each PO DAILY 09/24/16 Omeprazole 40 mg PO DAILY 09/24/16 Prednisolone 1% Ophthalmic [Pred Forte 1% -] 0 ml OU DAILY 09/24/16 Rifaximin [Xifaxan] 550 mg PO DAILY 09/24/16 Spironolactone [Aldactone] 50 mg PO DAILY 09/24/16 Tamsulosin HCl [Flomax] 0.4 mg PO DAILY 09/24/16 Zolpidem Tartrate [Ambien] 5 mg PO DAILY 09/24/16 Physical Examination Vital Signs: Vital Signs Temperature 97.9 F 09/24/16 22:16 Pulse Rate 75 09/24/16 22:16 Respiratory Rate 16 09/24/16 22:16 Blood Pressure 108/56 09/24/16 22:16 O2 Sat by Pulse Oximetry (%) 94 L 09/24/16 22:16
[2016-09-25] MEDS: LACTULOSE 20 GM/30 ML UDC (FOR ORAL USE ONLY) PO SCH ×2 (04:31→09:31)
[2016-09-25 06:15] VITALS: BMI 28.4
[2016-09-25] MEDS: INSULIN SLIDING SCALE (NOVOLOG) 1 VIAL SQ SCH ×4 (08:15→21:27)
[2016-09-25] MEDS: TAMSULOSIN HCL 0.4 MG CAP.ER.24H (FP) PO SCH (08:50)
[2016-09-25] MEDS: SPIRONOLACTONE 25 MG TABLET (FP) PO SCH (09:30)
[2016-09-25] MEDS: FERROUS SO4 325 MG TABLET (FP) PO SCH (09:30)
[2016-09-25] MEDS: FOLIC ACID 1 MG TABLET (FP) PO SCH (09:30)
[2016-09-25] MEDS: FUROSEMIDE 20 MG TABLET (FP) PO SCH (09:30)
[2016-09-25] MEDS ORDERED: RIFAXIMIN 550 MG TABLET (UD) PO SCH (10:00)
[2016-09-25] MEDS ORDERED: PATIENT'S OWN MEDICATION (NON-FORMULARY) (Lipase/Protease/Amylase [Creon Dr 24,000 Units C PO SCH (10:00)
--- NOTE | 2016-09-25 14:44 | CONSULT ---
Consult - text type - Consultation Consultation Note: NEUROLOGY CONSULTATION is greatly appreciated: Events reviewed and Pt examined in the presence of his . This 76 yo RH man with h/o ETOH, Cirrhosis, liver cancer, HTN,,DM, GERD and anemia is maintained on insulins, lasix, spironolactone, FeSO4, omeprazole and tamsulosin. H/O Hepatic encephalopathy on lactulose. describes shuffling gait at baseline. However, over the last 2 weeks, Mr. Mejía has had progressive deterioration of gait with multiple falls and confusion. On admission Ammonia levels are 101 and 100 mg%. Ekw=742 mg%. No obvious signs of infection. Platelets=33K CT of head (reviewed) is overpenetrated and unreadable re: Brain parenchyma but no evidence for skull fracture. CT of head (08/01/16, admission for hepatic encephalopathy) moderate, diffuse atrophy without SDH or focal lesions. DEEPA: Neck supple. Kernig's Neg. No evidence for external head trauma. NEURO: Lethargic but arousable. Sparse dysarthric speech. Oriented X "Here.: No month, year or president. CN II-XII: Full chi and EOM's with gaze-directed nystagmus. No facial Gag OK Motor: No drift. Min myoclonus/asterixis. Normal grasps. Normal reflexes except AJ's. Coord: Min FTN Dystaxia. Sensory: Withdraws all fours to pinch. IMP: Non-focal exam sig for moderately severe, B/L cerebral dysfunction with features supporting hepatic encephalopathy. Diabetic peripheral neuropathy SUGGEST: Continue lactulose and low protein diet. Check B12, TSH, B1. Add thiamine to IV fluids. R/O GI bleed with stool Guiacs. Thank you very much, Stan Badillo MD
--- NOTE | 2016-09-25 15:15 | CON.GI ---
Consult Consult Specialty:: gastroenterology Referred by:: [place] - History of Present Illness History of Present Illness: 76 y/o male with cirrhosis complicated by hepatic encephalopathy. He was admitted with change in mental status. Overnight he did better. He was less confused. 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 Hepatobiliary: Yes: Cirrhosis - Alcohol/Substance Use Hx Alcohol Use: No - Smoking History Smoking history: Former smoker Have you smoked in the past 12 months: No Aproximately how many cigarettes per day: 2,004 If you are a former smoker, when did you quit?: 2003 Home Medications - Allergies Allergies/Adverse Reactions: Allergies Allergy/AdvReac Type Severity Reaction Status Date / Time No Known Allergies Allergy Verified 09/24/16 15:42 - Home Medications Home Medications: Ambulatory Orders B Complex with Vitamin C [B-Complex with C] 1 each PO DAILY 09/24/16 Ferrous Sulfate [Feosol] 325 mg PO DAILY 09/24/16 Folic Acid 1 mg PO DAILY 09/24/16 Furosemide [Lasix] 20 mg PO DAILY 09/24/16 Lactulose 10 gm PO DAILY 09/24/16 Lipase/Protease/Amylase [Crejae Dr 24,000 Units Capsule] 1 each PO DAILY Multivitamin [Poly-Vitamin] 1 each PO DAILY 09/24/16 Omeprazole 40 mg PO DAILY 09/24/16 Prednisolone 1% Ophthalmic [Pred Forte 1% -] 0 ml OU DAILY 09/24/16 Rifaximin [Xifaxan] 550 mg PO DAILY 09/24/16 Spironolactone [Aldactone] 50 mg PO DAILY 09/24/16 Tamsulosin HCl [Flomax] 0.4 mg PO DAILY 09/24/16 Zolpidem Tartrate [Ambien] 5 mg PO DAILY 09/24/16 Physical Exam-GI Vital Signs: Vital Signs Temperature 98.4 F 09/25/16 06:00 Pulse Rate 80 09/25/16 09:00 Respiratory Rate 18 09/25/16 09:00 Blood Pressure 120/48 09/25/16 09:00 O2 Sat by Pulse Oximetry (%) 94 L 09/25/16 09:00 Constitutional: Yes: Well Nourished Eyes: Yes: Conjunctiva Clear HENT: Yes: Atraumatic Neck: Yes: Trachea Midline Cardiovascular: Yes: Regular Rate and Rhythm Respiratory: Yes: CTA Bilaterally ...Palpate: Yes: Soft. No: Firm/Rigid, Guarding, Hepatomegaly, Mass, Pulsatile Mass, Splenomegaly, Tenderness, Tenderness, Epigastium Labs: CBC,CMP WBC 2.7 K/mm3 (4.0-10.0) L D 09/24/16 16:51 RBC 3.83 M/mm3 (4.00-5.60) L 09/24/16 16:51 Hgb 12.7 GM/dL (11.7-16.9) 09/24/16 16:51 Hct 38.2 % (35.4-49) 09/24/16 16:51 MCV 99.6 fl (80-96) H 09/24/16 16:51 MCH 33.1 pg (25.7-33.7) 09/24/16 16:51 MCHC 33.2 g/dl (32.0-35.9) 09/24/16 16:51 RDW 17.7 % (11.9-15.9) H 09/24/16 16:51 Plt Count 33 K/MM3 (134-434) L* 09/24/16 16:51 MPV 10.4 fl (7.5-11.1) 09/24/16 16:51 Neutrophils % 76.1 % (42.8-82.8) 09/24/16 16:51 Lymphocytes % 13.0 % (8-40) D 09/24/16 16:51 Monocytes % 8.4 % (3.8-10.2) 09/24/16 16:51 Eosinophils % 2.0 % (0-4.5) D 09/24/16 16:51 Basophils % 0.5 % (0-2.0) 09/24/16 16:51 Differential Comment Slide scanned 09/24/16 16:51 Platelet Estimate Markedly decreased (NORMAL) 09/24/16 16:51 Platelet Comment No clotting detected 09/24/16 16:51 Platelet Comment No clumping noted 09/24/16 16:51 Sodium 135 mmol/L (136-145) L 09/24/16 16:51 Potassium 4.2 mmol/L (3.5-5.1) 09/24/16 16:51 Chloride 104 mmol/L (98-107) 09/24/16 16:51 Carbon Dioxide 24 mmol/L (21-32) 09/24/16 16:51 Anion Gap 7 (8-16) L 09/24/16 16:51 BUN 11 mg/dL (7-18) D 09/24/16 16:51 Creatinine 1.0 mg/dL (0.7-1.3) 09/24/16 16:51 Creat Clearance w eGFR > 60 (>60) 09/24/16 16:51 POC Glucometer 255 UNITS (()) 09/25/16 12:14 Random Glucose 414 mg/dL (74-106) H* D 09/24/16 16:51 Hemoglobin A1c % 8.5 % (4.8-6.0) H D 09/25/16 06:10 Calcium 8.1 mg/dL (8.5-10.1) L 09/24/16 16:51 Total Bilirubin 4.0 mg/dL (0.2-1.0) H 09/24/16 16:51 AST 41 U/L (15-37) H D 09/24/16 16:51 ALT 13 U/L (12-78) 09/24/16 16:51 Alkaline Phosphatase 259 U/L (45-117) H 09/24/16 16:51 Ammonia 100.2 umol/L (11-32) H 09/25/16 06:10 Total Protein 5.9 g/dl (6.4-8.2) L 09/24/16 16:51 Albumin 2.1 g/dl (3.4-5.0) L 09/24/16 16:51 TSH 1.54 uIU/ml (0.358-3.74) 09/25/16 06:10 Problem List - Problems (1) Alcoholic cirrhosis Assessment/Plan: R> continue Xifaxan Rocephin for possible SBP so far no tissue diagnosis of hepatoma nor radiologic evidence of Hepatoma Code(s): K70.30 - ALCOHOLIC CIRRHOSIS OF LIVER WITHOUT ASCITES
--- NOTE | 2016-09-25 15:54 | CONSULT ---
Consult Consult Specialty:: Hematology/Oncology Reason for Consultation:: Hx of liver cancer - History of Present Illness Chief Complaint: altered mental status History of Present Illness: Hx of initial presentation : Patient not able to give me history, history was obtained from his at bedside along with the help of a [place] translation service is a 76 y/o male with Hx of alzheimers dementia, DM, liver cancer that has been admitted with worsening altered mental status for the past few weeks. Per his , he was becoming more confused at home and having frequent falls hence she brought him here for further evaluation. On admission, patient has been diagnosed with hepatic encephalopathy with worsening AMS. Oncology asked to see patient because of his history of liver cancer. 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: Alzheimer's, Dementia Hepatobiliary: Yes: Cirrhosis - Alcohol/Substance Use Hx Alcohol Use: No - Smoking History Smoking history: Former smoker Have you smoked in the past 12 months: No Aproximately how many cigarettes per day: 2,004 If you are a former smoker, when did you quit?: 2003 - Social History Usual Living Arrangement: With Spouse Home Medications - Allergies Allergies/Adverse Reactions: Allergies Allergy/AdvReac Type Severity Reaction Status Date / Time No Known Allergies Allergy Verified 09/24/16 15:42 - Home Medications Home Medications: Ambulatory Orders B Complex with Vitamin C [B-Complex with C] 1 each PO DAILY 09/24/16 Ferrous Sulfate [Feosol] 325 mg PO DAILY 09/24/16 Folic Acid 1 mg PO DAILY 09/24/16 Furosemide [Lasix] 20 mg PO DAILY 09/24/16 Lactulose 10 gm PO DAILY 09/24/16 Lipase/Protease/Amylase [Sidney Dr 24,000 Units Capsule] 1 each PO DAILY Multivitamin [Poly-Vitamin] 1 each PO DAILY 09/24/16 Omeprazole 40 mg PO DAILY 09/24/16 Prednisolone 1% Ophthalmic [Pred Forte 1% -] 0 ml OU DAILY 09/24/16 Rifaximin [Xifaxan] 550 mg PO DAILY 09/24/16 Spironolactone [Aldactone] 50 mg PO DAILY 09/24/16 Tamsulosin HCl [Flomax] 0.4 mg PO DAILY 09/24/16 Zolpidem Tartrate [Ambien] 5 mg PO DAILY 09/24/16 Review of Systems Unable to obtain ROS, reason: altered mental status Physical Exam Vital Signs: Vital Signs Temperature 98.0 F 09/25/16 15:41 Pulse Rate 76 09/25/16 15:41 Respiratory Rate 18 09/25/16 15:41 Blood Pressure 118/64 09/25/16 15:41 O2 Sat by Pulse Oximetry (%) 94 L 09/25/16 09:00 Assessment/Plan 76 y/o male with Hx of liver cancer ,advanced cirrhosis, dementia now admitted with altered mental status - as per my conversation with his today, he has a very poor functional status at home- advanced dementia- needs help with IADLS -It appears that his liver cancer was recently diagnosed and he has not had any treatment in the past for it. 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
[2016-09-25] MEDS: CEFTRIAXONE 50 ML IVPB SCH (17:56)
[2016-09-25] MEDS ORDERED: PT OWN MED DRAWER 7, Y5N ONE (20:47)
[2016-09-25] MEDS: RIFAXIMIN 550 MG TABLET (UD) PO SCH (21:27)
--- NOTE | 2016-09-26 00:06 | CONSULT ---
Consult Consult Specialty:: endocrine Referred by:: dr.rocco kitchen Reason for Consultation:: diabetes mellitus - History of Present Illness Chief Complaint: dementia,weakness, high sugars History of Present Illness: 76 y/o male with Hx of alzheimers dementia, DM, liver cancer that has been admitted with worsening altered mental status for the past few weeks. Per his , he was becoming more confused at home and having frequent falls hence she brought him here for further evaluation. On admission, patient has been diagnosed with hepatic encephalopathy with worsening AMS. Oncology asked to see patient because of his history of liver cancer. - History Source History Provided By: Family Member - Past Medical History MICA [employer]ER: Yes: Alzheimer's, Dementia Hepatobiliary: Yes: Cirrhosis - Alcohol/Substance Use Hx Alcohol Use: No - Smoking History Smoking history: Former smoker Have you smoked in the past 12 months: No Aproximately how many cigarettes per day: 2,004 If you are a former smoker, when did you quit?: 2003 - Social History Usual Living Arrangement: With Spouse Home Medications - Allergies Allergies/Adverse Reactions: Allergies Allergy/AdvReac Type Severity Reaction Status Date / Time No Known Allergies Allergy Verified 09/24/16 15:42 - Home Medications Home Medications: Ambulatory Orders B Complex with Vitamin C [B-Complex with C] 1 each PO DAILY 09/24/16 Ferrous Sulfate [Feosol] 325 mg PO DAILY 09/24/16 Folic Acid 1 mg PO DAILY 09/24/16 Furosemide [Lasix] 20 mg PO DAILY 09/24/16 Lactulose 10 gm PO DAILY 09/24/16 Lipase/Protease/Amylase [Sidney Apple 24,000 Units Capsule] 1 each PO DAILY Multivitamin [Poly-Vitamin] 1 each PO DAILY 09/24/16 Omeprazole 40 mg PO DAILY 09/24/16 Prednisolone 1% Ophthalmic [Pred Forte 1% -] 0 ml OU DAILY 09/24/16 Rifaximin [Xifaxan] 550 mg PO DAILY 09/24/16 Spironolactone [Aldactone] 50 mg PO DAILY 09/24/16 Tamsulosin HCl [Flomax] 0.4 mg PO DAILY 09/24/16 Zolpidem Tartrate [Ambien] 5 mg PO DAILY 09/24/16 Review of Systems - Review of Systems Constitutional: reports: Lethargy, Unintentional Wgt. Loss, Weakness Physical Exam Vital Signs: Vital Signs Temperature 97.9 F 09/25/16 19:12 Pulse Rate 75 09/25/16 19:12 Respiratory Rate 18 09/25/16 19:12 Blood Pressure 116/61 09/25/16 19:12 O2 Sat by Pulse Oximetry (%) 94 L 09/25/16 09:00 Constitutional: Yes: Anxious Eyes: Yes: EOM Intact HENT: Yes: Normocephalic Neck: Yes: Trachea Midline Cardiovascular: Yes: Regular Rate and Rhythm Respiratory: Yes: CTA Bilaterally Gastrointestinal: Yes: Abdomen, Obese, Hypoactive Bowel Sounds ...Rectal Exam: Yes: Deferred Renal/: Yes: WNL Breast(s): Yes: WNL Musculoskeletal: Yes: WNL Extremities: Yes: WNL Edema: No Peripheral Pulses WNL: Yes Neurological: Yes: Alert, Unsteady Gait, Weakness Problem List - Problems (1) Hepatic encephalopathy Code(s): K72.90 - HEPATIC FAILURE, UNSPECIFIED WITHOUT COMA (2) Hyperglycemia Code(s): R73.9 - HYPERGLYCEMIA, UNSPECIFIED (3) Alcoholic cirrhosis Code(s): K70.30 - ALCOHOLIC CIRRHOSIS OF LIVER WITHOUT ASCITES (4) Altered mental state Code(s): R41.82 - ALTERED MENTAL STATUS, UNSPECIFIED Qualifiers: Altered mental status type: somnolence Qualified Code(s): R40.0 - Somnolence (5) Chronic liver disease Code(s): K76.9 - LIVER DISEASE, UNSPECIFIED (6) Confused Code(s): R41.0 - DISORIENTATION, UNSPECIFIED (7) Dementia Code(s): F03.90 - UNSPECIFIED DEMENTIA WITHOUT BEHAVIORAL DISTURBANCE Assessment/Plan Current Active Problems Hepatic encephalopathy (Acute) Hyperglycemia (Acute) diabetes mellitus hyperglycemia htn dementia Abnormal Lab Results 09/25/16 09/25/16 06:10 06:10 Hemoglobin A1c % 8.5 H D Ammonia 100.2 H Laboratory Results - last 24 hr 09/25/16 09/25/16 09/25/16 06:10 06:10 06:10 POC Glucometer Hemoglobin A1c % 8.5 H D Ammonia 100.2 H TSH 1.54 09/25/16 09/25/16 09/25/16 08:04 12:14 17:35 POC Glucometer 91 255 216 Hemoglobin A1c % Ammonia TSH 09/25/16 21:26 POC Glucometer 226 Hemoglobin A1c % Ammonia TSH plan: bgm qid novolog insulin coverage add levemir 10 units am if sugar over 150mg/dl
[2016-09-26] MEDS: INSULIN DETEMIR 100 UNITS/ML MDV SQ SCH (06:17)
[2016-09-26] MEDS: INSULIN SLIDING SCALE (NOVOLOG) 1 VIAL SQ SCH ×4 (06:18→22:03)
[2016-09-26] MEDS: TAMSULOSIN HCL 0.4 MG CAP.ER.24H (FP) PO SCH (09:02)
[2016-09-26] MEDS: LACTULOSE 20 GM/30 ML UDC (FOR ORAL USE ONLY) PO SCH (09:02)
[2016-09-26] MEDS: CEFTRIAXONE 50 ML IVPB SCH (09:02)
[2016-09-26] MEDS: FERROUS SO4 325 MG TABLET (FP) PO SCH (09:02)
[2016-09-26] MEDS: FUROSEMIDE 20 MG TABLET (FP) PO SCH (09:02)
[2016-09-26] MEDS: SPIRONOLACTONE 25 MG TABLET (FP) PO SCH (09:02)
[2016-09-26] MEDS: FOLIC ACID 1 MG TABLET (FP) PO SCH (09:02)
[2016-09-26] MEDS ORDERED: PT OWN MED DRAWER 7, Y5N ONE ×3 (09:04→21:52)
[2016-09-26] MEDS: LIPASE/PROTEASE/AMYLASE 6,000 UNIT CAPSULE PO SCH ×3 (09:05→17:57)
[2016-09-26] MEDS: RIFAXIMIN 550 MG TABLET (UD) PO SCH ×2 (09:07→21:55)
--- NOTE | 2016-09-26 12:30 | PN ---
Progress Note (short form) - Note Progress Note: Oncology follow-up note S-Patient more awake and alert when visited today. Answering my questions. His and daughter are at bedside. Daughter is translating for me. Last Vital Signs Temp Pulse Resp BP Pulse Ox 98.1 F 88 20 122/76 93 L 09/26/16 06:00 09/26/16 09:15 09/26/16 09:15 09/26/16 09:15 09/26/16 09:00 AOx1, Alert, awake S1S2 WNL, CTA(BL) Soft abdomen mild edema + flaps/tremors on exam CBC, BMP 09/24/16 16:51 09/24/16 16:51 Current Medications Generic Name Dose Route Start Last Admin Trade Name Angelitoq PRN Reason Stop Dose Admin Ferrous Sulfate 325 mg 09/25/16 10:00 09/26/16 09:02 Feosol - PO 325 mg DAILY NO Administration Folic Acid 1 mg 09/25/16 10:00 09/26/16 09:02 Folic Acid - PO 1 mg DAILY NO Administration Furosemide 20 mg 09/25/16 10:00 09/26/16 09:02 Lasix - PO 20 mg DAILY NO Administration Ceftriaxone Sodium 50 mls @ 100 mls/hr 09/25/16 15:15 09/26/16 09:02 Rocephin 1gm Ivpb (Pre-Docked) IVPB 100 mls/hr DAILY NO Administration Insulin Aspart 1 vial 09/25/16 07:00 09/26/16 12:16 Novolog Vial Sliding Scale - SQ 6 units ACHS NO Administration Protocol Insulin Detemir 10 units 09/26/16 07:00 09/26/16 06:17 Levemir Vial SQ 10 units AM NO Administration Lactulose 20 gm 09/25/16 03:00 09/26/16 09:02 Cephulac (Oral Use) PO 20 gm DAILY NO Administration Pancrelipase 4 cap 09/26/16 08:00 09/26/16 12:17 Sidney Apple 6,000 Units Capsule PO 4 cap TIDCM NO Administration Prednisolone Acetate drop 09/25/16 10:00 Pred Forte 1% - OU DAILY NO Rifaximin 550 mg 09/25/16 22:00 09/26/16 09:07 Xifaxan - PO 550 mg BID NO Administration Spironolactone 50 mg 09/25/16 10:00 09/26/16 09:02 Aldactone - PO 50 mg DAILY NO Administration Tamsulosin HCl 0.4 mg 09/25/16 08:30 09/26/16 09:02 Flomax - PO 0.4 mg DAILY@0830 NO Administration 76 y/o male with Hx of liver cancer ,advanced cirrhosis, dementia now admitted with altered mental status - he has a very poor functional status at home- advanced dementia- needs help with IADLS, he often forgets family member's names and recently got lost for 14 hours -as per information obtained from his daughter, his liver cancer was diagnosed 2 years ago but given his other comorbidities, family decided not to opt for any treatment at the time -agree with plan to continue lactulose, give IV thiamine and checking stool guiacs -can check AFP levels -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
--- NOTE | 2016-09-26 23:49 | PN ---
Progress Note, Physician History of Present Illness: Pt more awake today - Current Medication List Current Medications: Active Medications Ferrous Sulfate (Feosol -) 325 mg PO DAILY [facility] Last Admin: 09/26/16 09:02 Dose: 325 mg Folic Acid (Folic Acid -) 1 mg PO DAILY [facility] Last Admin: 09/26/16 09:02 Dose: 1 mg Furosemide (Lasix -) 20 mg PO DAILY [facility] Last Admin: 09/26/16 09:02 Dose: 20 mg Ceftriaxone Sodium (Rocephin 1gm Ivpb (Pre-Docked)) 50 mls @ 100 mls/hr IVPB DAILY [facility] Last Admin: 09/26/16 09:02 Dose: 100 mls/hr Insulin Aspart (Novolog Vial Sliding Scale -) 1 vial SQ ACHS [facility] PRN Reason: Protocol Last Admin: 09/26/16 22:03 Dose: 4 units Insulin Detemir (Levemir Vial) 10 units SQ AM [facility] Last Admin: 09/26/16 06:17 Dose: 10 units Lactulose (Cephulac (Oral Use)) 20 gm PO DAILY [facility] Last Admin: 09/26/16 09:02 Dose: 20 gm Pancrelipase (Creon Dr 6,000 Units Capsule) 4 cap PO TIDCM [facility] Last Admin: 09/26/16 17:57 Dose: 4 cap Prednisolone Acetate (Pred Forte 1% -) 1 drop OU DAILY [facility] Rifaximin (Xifaxan -) 550 mg PO BID [facility] Last Admin: 09/26/16 21:55 Dose: 550 mg Spironolactone (Aldactone -) 50 mg PO DAILY [facility] Last Admin: 09/26/16 09:02 Dose: 50 mg Tamsulosin HCl (Flomax -) 0.4 mg PO DAILY@0830 [facility] Last Admin: 09/26/16 09:02 Dose: 0.4 mg - Objective Vital Signs: Vital Signs Temperature 99.1 F 09/26/16 18:00 Pulse Rate 79 09/26/16 18:00 Respiratory Rate 18 09/26/16 18:00 Blood Pressure 113/56 09/26/16 18:00 O2 Sat by Pulse Oximetry (%) 93 L 09/26/16 09:00 Constitutional: Yes: No Distress HENT: Yes: WNL Neck: Yes: WNL Cardiovascular: Yes: WNL, Regular Rate and Rhythm Respiratory: Yes: WNL, Regular, CTA Bilaterally Gastrointestinal: Yes: WNL, Normal Bowel Sounds, Soft Edema: LLE: Trace, RLE: Trace Problem List - Problems (1) Hepatic encephalopathy Assessment/Plan: Repeat ammonia levels in am Cont lactulose Due to liver ca/cirrhosis Code(s): K72.90 - HEPATIC FAILURE, UNSPECIFIED WITHOUT COMA (2) Liver cancer Code(s): C22.9 - MALIG NEOPLASM OF LIVER, NOT SPECIFIED PRIMARY OR SEC (3) HTN (hypertension) Assessment/Plan: BP stable COnt lasix/aldactone Code(s): I10 - ESSENTIAL (PRIMARY) HYPERTENSION (4) Anemia Assessment/Plan: Due to liver dz Cont Feso4/folic acid Monitor H/H Code(s): D64.9 - ANEMIA, UNSPECIFIED (5) Dementia Code(s): F03.90 - UNSPECIFIED DEMENTIA WITHOUT BEHAVIORAL DISTURBANCE (6) Diabetes Assessment/Plan: Cont levemir/sliding scale w/ novolog Code(s): E11.9 - TYPE 2 DIABETES MELLITUS WITHOUT COMPLICATIONS Qualifiers: Diabetes mellitus type: type 1 Diabetes mellitus complication status: without complication Qualified Code(s): E10.9 - Type 1 diabetes mellitus without complications (7) Thrombocytopenia Code(s): D69.6 - THROMBOCYTOPENIA, UNSPECIFIED
[2016-09-27] MEDS: INSULIN DETEMIR 100 UNITS/ML MDV SQ SCH (06:17)
[2016-09-27] MEDS: INSULIN SLIDING SCALE (NOVOLOG) 1 VIAL SQ SCH ×4 (06:18→21:21)
[2016-09-27 07:11] LABS: BASOPHIL 0.7 % (0-2.0); EOSINOPHIL 2.2 % (0-4.5); MCH 33.9 pg (25.7-33.7); MCHC 34.4 g/dl (32.0-35.9); MEAN CELL VOLUME 98.5 fl (80-96); MEAN PLT VOLUME 9.9 fl (7.5-11.1); NEUTROPHILS 71.3 % (42.8-82.8); PLATELET COUNT 37 K/MM3 (134-434); RDW 17.3 % (11.9-15.9); WHITE BLOOD COUNT 3.9 K/mm3 (4.0-10.0)
[2016-09-27 07:39] LABS: ALBUMIN 2.3 g/dl (3.4-5.0); ANION GAP 9 (8-16); CALCIUM 8.7 mg/dL (8.5-10.1); CO2 26 mmol/L (21-32); CREATININE 0.9 mg/dL (0.7-1.3); GLUCOSE,RANDOM 118 mg/dL (74-106); SGOT/AST 44 U/L (15-37); SGPT/ALT 17 U/L (12-78)
[2016-09-27 07:41] LABS: ALK PHOS 290 U/L (45-117); BILIRUBIN,TOTAL 4.5 mg/dL (0.2-1.0); TOT PROT 6.5 g/dl (6.4-8.2)
[2016-09-27] MEDS ORDERED: PT OWN MED DRAWER 7, Y5N ONE ×6 (08:13→20:33)
[2016-09-27] MEDS: TAMSULOSIN HCL 0.4 MG CAP.ER.24H (FP) PO SCH (08:27)
--- NOTE | 2016-09-27 09:51 | EKG ---
Test Reason : Blood Pressure : / mmHG Vent. Rate : 078 BPM Atrial Rate : 078 BPM P-R Int : 144 ms QRS Dur : 092 ms QT Int : 414 ms P-R-T Axes : 005 -34 023 degrees QTc Int : 471 ms NORMAL SINUS RHYTHM LEFT AXIS DEVIATION INFERIOR INFARCT , AGE UNDETERMINED ABNORMAL ECG WHEN COMPARED WITH ECG OF 25-MAR-2016 12:38, NO SIGNIFICANT CHANGE WAS FOUND Confirmed by KOBY ZHANG MD ([id number]) on 09/27/2016 9:50:49 AM Referred By: Confirmed By:KOBY ZHANG MD
[2016-09-27] MEDS: CEFTRIAXONE 50 ML IVPB SCH (10:14)
[2016-09-27] MEDS: LIPASE/PROTEASE/AMYLASE 6,000 UNIT CAPSULE PO SCH ×3 (10:16→17:53)
[2016-09-27] MEDS: SPIRONOLACTONE 25 MG TABLET (FP) PO SCH (10:16)
[2016-09-27] MEDS: FUROSEMIDE 20 MG TABLET (FP) PO SCH (10:16)
[2016-09-27] MEDS: FOLIC ACID 1 MG TABLET (FP) PO SCH (10:16)
[2016-09-27] MEDS: FERROUS SO4 325 MG TABLET (FP) PO SCH (10:16)
[2016-09-27] MEDS: LACTULOSE 20 GM/30 ML UDC (FOR ORAL USE ONLY) PO SCH (10:16)
[2016-09-27] MEDS: RIFAXIMIN 550 MG TABLET (UD) PO SCH ×2 (10:17→21:23)
[2016-09-27] MEDS: prednisoLONE ACETATE 1% OPHTH SUSP 5 ML BOTTLE OU SCH (10:35)
--- NOTE | 2016-09-27 13:39 | PN ---
Progress Note (short form) - Note Progress Note: Last Vital Signs patient today is sitting comfortably in his chair, having his lunch. He denies any complains. He is alert and awake and responds to his name Temp Pulse Resp BP Pulse Ox 98.2 F 82 18 134/80 95 09/27/16 09:03 09/27/16 09:03 09/27/16 09:03 09/27/16 09:03 09/27/16 09:00 Current Medications Generic Name Dose Route Start Last Admin Trade Name Akosua PRN Reason Stop Dose Admin Ferrous Sulfate 325 mg 09/25/16 10:00 09/27/16 10:16 Feosol - PO 325 mg DAILY NO Administration Folic Acid 1 mg 09/25/16 10:00 09/27/16 10:16 Folic Acid - PO 1 mg DAILY NO Administration Furosemide 20 mg 09/25/16 10:00 09/27/16 10:16 Lasix - PO 20 mg DAILY NO Administration Ceftriaxone Sodium 50 mls @ 100 mls/hr 09/25/16 15:15 09/27/16 10:14 Rocephin 1gm Ivpb (Pre-Docked) IVPB 100 mls/hr DAILY NO Administration Insulin Aspart 1 vial 09/25/16 07:00 09/27/16 13:01 Novolog Vial Sliding Scale - SQ 4 units ACHS NO Administration Protocol Insulin Detemir 10 units 09/26/16 07:00 09/27/16 06:17 Levemir Vial SQ Not Given AM NO Lactulose 20 gm 09/25/16 03:00 09/27/16 10:16 Cephulac (Oral Use) PO 20 gm DAILY NO Administration Pancrelipase 4 cap 09/26/16 08:00 09/27/16 12:58 Crejae Apple 6,000 Units Capsule PO 4 cap TIDCM NO Administration Prednisolone Acetate 1 drop 09/27/16 10:00 09/27/16 10:35 Pred Forte 1% - OU 1 drop DAILY NO Administration Rifaximin 550 mg 09/25/16 22:00 09/27/16 10:17 Xifaxan - PO 550 mg BID NO Administration Spironolactone 50 mg 09/25/16 10:00 09/27/16 10:16 Aldactone - PO 50 mg DAILY NO Administration Tamsulosin HCl 0.4 mg 09/25/16 08:30 09/27/16 08:27 Flomax - PO 0.4 mg DAILY@0830 NO Administration CBC, BMP 09/27/16 06:00 09/27/16 06:00 76 y/o male with Hx of liver cancer ,advanced cirrhosis, dementia now admitted with altered mental status. - from our team has discussed to the family yesterday and supposedly pt is on no treatment for his HCC. -low white cell/Thrombocytopenia is from cirrhosis/liver failure. -Supportive care with platelet transfusions if bleeding/any procedures planned. -continue with the present plan. 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 will follow
--- NOTE | 2016-09-27 22:22 | PN ---
Progress Note, Physician History of Present Illness: No new complaints - Current Medication List Current Medications: Active Medications Ferrous Sulfate (Feosol -) 325 mg PO DAILY [facility] Last Admin: 09/27/16 10:16 Dose: 325 mg Folic Acid (Folic Acid -) 1 mg PO DAILY [facility] Last Admin: 09/27/16 10:16 Dose: 1 mg Furosemide (Lasix -) 20 mg PO DAILY [facility] Last Admin: 09/27/16 10:16 Dose: 20 mg Ceftriaxone Sodium (Rocephin 1gm Ivpb (Pre-Docked)) 50 mls @ 100 mls/hr IVPB DAILY [facility] Last Admin: 09/27/16 10:14 Dose: 100 mls/hr Insulin Aspart (Novolog Vial Sliding Scale -) 1 vial SQ ACHS [facility] PRN Reason: Protocol Last Admin: 09/27/16 21:21 Dose: 4 units Insulin Detemir (Levemir Vial) 10 units SQ AM [facility] Last Admin: 09/27/16 06:17 Dose: Not Given Lactulose (Cephulac (Oral Use)) 20 gm PO DAILY [facility] Last Admin: 09/27/16 10:16 Dose: 20 gm Pancrelipase (Creon Dr 6,000 Units Capsule) 4 cap PO TIDCM [facility] Last Admin: 09/27/16 17:53 Dose: 4 cap Prednisolone Acetate (Pred Forte 1% -) 1 drop OU DAILY [facility] Last Admin: 09/27/16 10:35 Dose: 1 drop Rifaximin (Xifaxan -) 550 mg PO BID [facility] Last Admin: 09/27/16 21:23 Dose: 550 mg Spironolactone (Aldactone -) 50 mg PO DAILY [facility] Last Admin: 09/27/16 10:16 Dose: 50 mg Tamsulosin HCl (Flomax -) 0.4 mg PO DAILY@0830 [facility] Last Admin: 09/27/16 08:27 Dose: 0.4 mg - Objective Vital Signs: Vital Signs Temperature 99.2 F 09/27/16 18:00 Pulse Rate 98 H 09/27/16 18:00 Respiratory Rate 20 09/27/16 18:00 Blood Pressure 125/75 09/27/16 18:00 O2 Sat by Pulse Oximetry (%) 95 09/27/16 09:00 Constitutional: Yes: No Distress HENT: Yes: WNL Neck: Yes: WNL Cardiovascular: Yes: WNL, Regular Rate and Rhythm Respiratory: Yes: WNL, Regular, CTA Bilaterally Gastrointestinal: Yes: WNL, Normal Bowel Sounds, Soft Labs: CBC, BMP 09/27/16 06:00 09/27/16 06:00 Problem List - Problems (1) Thrombocytopenia Assessment/Plan: Due to liver dz Transfuse plts if any signs of bleeding Code(s): D69.6 - THROMBOCYTOPENIA, UNSPECIFIED (2) Hepatic encephalopathy Assessment/Plan: Repeat ammonia levels in am Increase lactulose Due to liver ca/cirrhosis Palliative care consult Code(s): K72.90 - HEPATIC FAILURE, UNSPECIFIED WITHOUT COMA (3) Liver cancer Assessment/Plan: Palliative care consult Code(s): C22.9 - MALIG NEOPLASM OF LIVER, NOT SPECIFIED PRIMARY OR SEC (4) HTN (hypertension) Assessment/Plan: BP stable COnt lasix/aldactone Code(s): I10 - ESSENTIAL (PRIMARY) HYPERTENSION (5) Anemia Assessment/Plan: Due to liver dz Cont Feso4/folic acid Monitor H/H Code(s): D64.9 - ANEMIA, UNSPECIFIED (6) Dementia Code(s): F03.90 - UNSPECIFIED DEMENTIA WITHOUT BEHAVIORAL DISTURBANCE (7) Diabetes Assessment/Plan: Cont levemir/sliding scale w/ novolog Code(s): E11.9 - TYPE 2 DIABETES MELLITUS WITHOUT COMPLICATIONS Qualifiers: Diabetes mellitus type: type 1 Diabetes mellitus complication status: without complication Qualified Code(s): E10.9 - Type 1 diabetes mellitus without complications
[2016-09-28] MEDS: INSULIN DETEMIR 100 UNITS/ML MDV SQ SCH (06:40)
[2016-09-28] MEDS: INSULIN SLIDING SCALE (NOVOLOG) 1 VIAL SQ SCH ×4 (06:40→22:31)
[2016-09-28 07:08] LABS: BASOPHIL 0.6 % (0-2.0); EOSINOPHIL 3.7 % (0-4.5); MCHC 34.6 g/dl (32.0-35.9); MEAN CELL VOLUME 98.1 fl (80-96); MEAN PLT VOLUME 9.3 fl (7.5-11.1); NEUTROPHILS 68.3 % (42.8-82.8); RDW 17.2 % (11.9-15.9); WHITE BLOOD COUNT 3.4 K/mm3 (4.0-10.0)
[2016-09-28 07:22] LABS: INR 2.08 (0.82-1.09); PROTHROMBIN TIME (PATIENT) 23.2 SEC (9.98-11.88)
[2016-09-28 07:25] LABS: ACTIVATED PTT 40.3 SECONDS (26.9-34.4)
[2016-09-28 07:28] LABS: PLATELET COUNT 32 K/MM3 (134-434)
[2016-09-28 07:37] LABS: ALBUMIN 2.1 g/dl (3.4-5.0); ANION GAP 7 (8-16); CALCIUM 8.6 mg/dL (8.5-10.1); CO2 25 mmol/L (21-32); CREATININE 0.9 mg/dL (0.7-1.3); GLUCOSE,RANDOM 136 mg/dL (74-106); SGOT/AST 39 U/L (15-37); SGPT/ALT 15 U/L (12-78)
[2016-09-28 07:38] LABS: ALK PHOS 286 U/L (45-117); BILIRUBIN,TOTAL 3.4 mg/dL (0.2-1.0); TOT PROT 5.9 g/dl (6.4-8.2)
[2016-09-28] MEDS ORDERED: PT OWN MED DRAWER 7, Y5N ONE ×3 (08:49→12:31)
[2016-09-28] MEDS: LIPASE/PROTEASE/AMYLASE 6,000 UNIT CAPSULE PO SCH ×3 (08:51→17:15)
[2016-09-28] MEDS: TAMSULOSIN HCL 0.4 MG CAP.ER.24H (FP) PO SCH (08:51)
[2016-09-28] MEDS: LACTULOSE 20 GM/30 ML UDC (FOR ORAL USE ONLY) PO SCH ×2 (10:06→22:28)
[2016-09-28] MEDS: SPIRONOLACTONE 25 MG TABLET (FP) PO SCH (10:06)
[2016-09-28] MEDS: FUROSEMIDE 20 MG TABLET (FP) PO SCH (10:06)
[2016-09-28] MEDS: prednisoLONE ACETATE 1% OPHTH SUSP 5 ML BOTTLE OU SCH (10:07)
[2016-09-28] MEDS: CEFTRIAXONE 50 ML IVPB SCH (10:07)
[2016-09-28] MEDS: FOLIC ACID 1 MG TABLET (FP) PO SCH (10:07)
[2016-09-28] MEDS: FERROUS SO4 325 MG TABLET (FP) PO SCH (10:07)
[2016-09-28] MEDS: RIFAXIMIN 550 MG TABLET (UD) PO SCH ×2 (10:09→22:28)
[2016-09-28] MEDS ORDERED: INSULIN (NOVOLOG) ASPART 100 UNITS/ML 10ML VIAL ONE (20:30)
--- NOTE | 2016-09-28 20:47 | PN ---
Progress Note, Physician History of Present Illness: No new complaints - Current Medication List Current Medications: Active Medications Ferrous Sulfate (Feosol -) 325 mg PO DAILY [facility] Last Admin: 09/28/16 10:07 Dose: 325 mg Folic Acid (Folic Acid -) 1 mg PO DAILY [facility] Last Admin: 09/28/16 10:07 Dose: 1 mg Furosemide (Lasix -) 20 mg PO DAILY [facility] Last Admin: 09/28/16 10:06 Dose: 20 mg Ceftriaxone Sodium (Rocephin 1gm Ivpb (Pre-Docked)) 50 mls @ 100 mls/hr IVPB DAILY [facility] Last Admin: 09/28/16 10:07 Dose: 100 mls/hr Insulin Aspart (Novolog Vial Sliding Scale -) 1 vial SQ ACHS [facility] PRN Reason: Protocol Last Admin: 09/28/16 17:15 Dose: 6 units Insulin Detemir (Levemir Vial) 10 units SQ AM [facility] Last Admin: 09/28/16 06:40 Dose: 10 units Lactulose (Cephulac (Oral Use)) 20 gm PO BID [facility] Last Admin: 09/28/16 10:06 Dose: 20 gm Pancrelipase (Creon Dr 6,000 Units Capsule) 4 cap PO TIDCM [facility] Last Admin: 09/28/16 17:15 Dose: 4 cap Prednisolone Acetate (Pred Forte 1% -) 1 drop OU DAILY [facility] Last Admin: 09/28/16 10:07 Dose: 1 drop Rifaximin (Xifaxan -) 550 mg PO BID [facility] Last Admin: 09/28/16 10:09 Dose: 550 mg Spironolactone (Aldactone -) 50 mg PO DAILY [facility] Last Admin: 09/28/16 10:06 Dose: 50 mg Tamsulosin HCl (Flomax -) 0.4 mg PO DAILY@0830 [facility] Last Admin: 09/28/16 08:51 Dose: 0.4 mg - Objective Vital Signs: Vital Signs Temperature 97.9 F 09/28/16 18:00 Pulse Rate 80 09/28/16 18:00 Respiratory Rate 20 09/28/16 18:00 Blood Pressure 108/66 09/28/16 18:00 O2 Sat by Pulse Oximetry (%) 95 09/28/16 10:00 Constitutional: Yes: No Distress HENT: Yes: WNL Neck: Yes: WNL, Supple Cardiovascular: Yes: WNL, Regular Rate and Rhythm Respiratory: Yes: WNL, Regular, CTA Bilaterally Gastrointestinal: Yes: WNL, Normal Bowel Sounds, Soft Labs: CBC, BMP 09/28/16 06:25 09/28/16 06:25 INR, PTT INR 2.08 (0.82-1.09) H 09/28/16 06:25 Problem List - Problems (1) Thrombocytopenia Assessment/Plan: Due to liver dz Transfuse plts if any signs of bleeding Plts did drift down Cont to monitor Code(s): D69.6 - THROMBOCYTOPENIA, UNSPECIFIED (2) Hepatic encephalopathy Assessment/Plan: Repeat ammonia levels in am Ammonia levels decreasing Cont same dose of lactulose Due to liver ca/cirrhosis Palliative care consult Code(s): K72.90 - HEPATIC FAILURE, UNSPECIFIED WITHOUT COMA (3) Liver cancer Assessment/Plan: Palliative care consult Code(s): C22.9 - MALIG NEOPLASM OF LIVER, NOT SPECIFIED PRIMARY OR SEC (4) HTN (hypertension) Assessment/Plan: BP stable COnt lasix/aldactone Code(s): I10 - ESSENTIAL (PRIMARY) HYPERTENSION (5) Anemia Assessment/Plan: Due to liver dz Cont Feso4/folic acid Monitor H/H Code(s): D64.9 - ANEMIA, UNSPECIFIED (6) Diabetes Assessment/Plan: Cont levemir/sliding scale w/ novolog Code(s): E11.9 - TYPE 2 DIABETES MELLITUS WITHOUT COMPLICATIONS Qualifiers: Diabetes mellitus type: type 1 Diabetes mellitus complication status: without complication Qualified Code(s): E10.9 - Type 1 diabetes mellitus without complications (7) Dementia Code(s): F03.90 - UNSPECIFIED DEMENTIA WITHOUT BEHAVIORAL DISTURBANCE
[2016-09-29] MEDS: INSULIN DETEMIR 100 UNITS/ML MDV SQ SCH (06:14)
[2016-09-29] MEDS: INSULIN SLIDING SCALE (NOVOLOG) 1 VIAL SQ SCH ×4 (06:15→23:16)
[2016-09-29] MEDS ORDERED: PT OWN MED DRAWER 7, Y5N ONE ×3 (08:21→14:04)
[2016-09-29] MEDS: TAMSULOSIN HCL 0.4 MG CAP.ER.24H (FP) PO SCH (08:22)
[2016-09-29] MEDS: LIPASE/PROTEASE/AMYLASE 6,000 UNIT CAPSULE PO SCH ×3 (08:23→19:00)
[2016-09-29] MEDS: CEFTRIAXONE 50 ML IVPB SCH (10:02)
[2016-09-29] MEDS: SPIRONOLACTONE 25 MG TABLET (FP) PO SCH (10:03)
[2016-09-29] MEDS: FERROUS SO4 325 MG TABLET (FP) PO SCH (10:03)
[2016-09-29] MEDS: prednisoLONE ACETATE 1% OPHTH SUSP 5 ML BOTTLE OU SCH (10:03)
[2016-09-29] MEDS: RIFAXIMIN 550 MG TABLET (UD) PO SCH ×2 (10:03→23:16)
[2016-09-29] MEDS: FOLIC ACID 1 MG TABLET (FP) PO SCH (10:04)
[2016-09-29] MEDS: LACTULOSE 20 GM/30 ML UDC (FOR ORAL USE ONLY) PO SCH ×2 (10:04→23:16)
[2016-09-29] MEDS: FUROSEMIDE 20 MG TABLET (FP) PO SCH (10:04)
--- NOTE | 2016-09-29 21:41 | PN ---
Progress Note, Physician - Current Medication List Current Medications: Active Medications Ferrous Sulfate (Feosol -) 325 mg PO DAILY [facility] Last Admin: 09/29/16 10:03 Dose: 325 mg Folic Acid (Folic Acid -) 1 mg PO DAILY [facility] Last Admin: 09/29/16 10:04 Dose: 1 mg Furosemide (Lasix -) 20 mg PO DAILY [facility] Last Admin: 09/29/16 10:04 Dose: Not Given Ceftriaxone Sodium (Rocephin 1gm Ivpb (Pre-Docked)) 50 mls @ 100 mls/hr IVPB DAILY [facility] Last Admin: 09/29/16 10:02 Dose: 100 mls/hr Insulin Aspart (Novolog Vial Sliding Scale -) 1 vial SQ ACHS [facility] PRN Reason: Protocol Last Admin: 09/29/16 17:52 Dose: 4 units Insulin Detemir (Levemir Vial) 10 units SQ AM [facility] Last Admin: 09/29/16 06:14 Dose: 10 units Lactulose (Cephulac (Oral Use)) 20 gm PO BID [facility] Last Admin: 09/29/16 10:04 Dose: 20 gm Pancrelipase (Creon Dr 6,000 Units Capsule) 4 cap PO TIDCM [facility] Last Admin: 09/29/16 19:00 Dose: 4 cap Prednisolone Acetate (Pred Forte 1% -) 1 drop OU DAILY [facility] Last Admin: 09/29/16 10:03 Dose: 1 drop Rifaximin (Xifaxan -) 550 mg PO BID [facility] Last Admin: 09/29/16 10:03 Dose: 550 mg Spironolactone (Aldactone -) 50 mg PO DAILY [facility] Last Admin: 09/29/16 10:03 Dose: Not Given Tamsulosin HCl (Flomax -) 0.4 mg PO DAILY@0830 [facility] Last Admin: 09/29/16 08:22 Dose: 0.4 mg - Objective Vital Signs: Vital Signs Temperature 99.0 F 09/29/16 18:00 Pulse Rate 83 09/29/16 18:00 Respiratory Rate 20 09/29/16 18:00 Blood Pressure 128/69 09/29/16 18:00 O2 Sat by Pulse Oximetry (%) 97 09/29/16 11:00 Constitutional: Yes: No Distress HENT: Yes: WNL Neck: Yes: WNL, Supple Cardiovascular: Yes: WNL, Regular Rate and Rhythm Respiratory: Yes: WNL, Regular, CTA Bilaterally Gastrointestinal: Yes: WNL, Normal Bowel Sounds, Soft Labs: CBC, BMP 09/28/16 06:25 09/28/16 06:25 INR, PTT INR 2.08 (0.82-1.09) H 09/28/16 06:25 Problem List - Problems (1) Thrombocytopenia Assessment/Plan: Due to liver dz Transfuse plts if any signs of bleeding Plts did drift down Cont to monitor DC planning for am Code(s): D69.6 - THROMBOCYTOPENIA, UNSPECIFIED (2) Hepatic encephalopathy Assessment/Plan: Ammonia levels decreasing Cont same dose of lactulose Due to liver ca/cirrhosis Palliative care consult Code(s): K72.90 - HEPATIC FAILURE, UNSPECIFIED WITHOUT COMA (3) Liver cancer Assessment/Plan: Palliative care consult Code(s): C22.9 - MALIG NEOPLASM OF LIVER, NOT SPECIFIED PRIMARY OR SEC (4) HTN (hypertension) Assessment/Plan: BP stable COnt lasix/aldactone Code(s): I10 - ESSENTIAL (PRIMARY) HYPERTENSION (5) Anemia Assessment/Plan: Due to liver dz Cont Feso4/folic acid Monitor H/H Code(s): D64.9 - ANEMIA, UNSPECIFIED (6) Diabetes Assessment/Plan: Cont levemir/sliding scale w/ novolog Code(s): E11.9 - TYPE 2 DIABETES MELLITUS WITHOUT COMPLICATIONS Qualifiers: Diabetes mellitus type: type 1 Diabetes mellitus complication status: without complication Qualified Code(s): E10.9 - Type 1 diabetes mellitus without complications (7) Dementia Code(s): F03.90 - UNSPECIFIED DEMENTIA WITHOUT BEHAVIORAL DISTURBANCE
[2016-09-30] MEDS: INSULIN DETEMIR 100 UNITS/ML MDV SQ SCH (06:41)
[2016-09-30] MEDS: INSULIN SLIDING SCALE (NOVOLOG) 1 VIAL SQ SCH (06:42)
[2016-09-30 07:37] LABS: EOSINOPHIL 2.9 % (0-4.5); MCHC 34.6 g/dl (32.0-35.9); MEAN CELL VOLUME 98.1 fl (80-96); MEAN PLT VOLUME 9.9 fl (7.5-11.1); PLATELET COUNT 38 K/MM3 (134-434); RDW 17.2 % (11.9-15.9); WHITE BLOOD COUNT 3.7 K/mm3 (4.0-10.0)
[2016-09-30 08:25] LABS: ALBUMIN 2.1 g/dl (3.4-5.0); ALK PHOS 344 U/L (45-117); ANION GAP 8 (8-16); CALCIUM 8.1 mg/dL (8.5-10.1); CO2 25 mmol/L (21-32); CREATININE 0.8 mg/dL (0.7-1.3); GLUCOSE,RANDOM 122 mg/dL (74-106); SGOT/AST 49 U/L (15-37); SGPT/ALT 15 U/L (12-78); TOT PROT 5.8 g/dl (6.4-8.2)
[2016-09-30] MEDS: SPIRONOLACTONE 25 MG TABLET (FP) PO SCH (10:14)
[2016-09-30] MEDS: LACTULOSE 20 GM/30 ML UDC (FOR ORAL USE ONLY) PO SCH (10:14)
[2016-09-30] MEDS: TAMSULOSIN HCL 0.4 MG CAP.ER.24H (FP) PO SCH (10:14)
[2016-09-30] MEDS: CEFTRIAXONE 50 ML IVPB SCH (10:14)
[2016-09-30] MEDS: FUROSEMIDE 20 MG TABLET (FP) PO SCH (10:14)
[2016-09-30] MEDS: FERROUS SO4 325 MG TABLET (FP) PO SCH (10:14)
[2016-09-30] MEDS: FOLIC ACID 1 MG TABLET (FP) PO SCH (10:14)
[2016-09-30] MEDS: prednisoLONE ACETATE 1% OPHTH SUSP 5 ML BOTTLE OU SCH (10:15)
[2016-09-30] MEDS: LIPASE/PROTEASE/AMYLASE 6,000 UNIT CAPSULE PO SCH (10:15)
[2016-09-30] MEDS: RIFAXIMIN 550 MG TABLET (UD) PO SCH (10:16)
[2016-09-30 10:30] VITALS: BP 127/68; PULSE 74; TEMP 98
--- NOTE | 2016-10-01 15:35 | DS ---
Physical Examination Vital Signs: Vital Signs Temperature 98.0 F 09/30/16 09:30 Pulse Rate 74 09/30/16 09:30 Respiratory Rate 18 09/30/16 09:30 Blood Pressure 127/68 09/30/16 09:30 O2 Sat by Pulse Oximetry (%) 91 L 09/30/16 10:00 Labs: CBC, BMP 09/30/16 06:30 09/30/16 06:30 Discharge Summary Reason For Visit: HYPERGLYCEMIA,HEPATIC ENCEPHALOPATHY liver cancer Thrombocytopenia HTN Anemia Metabolic encephalopathy Hospital Course: 76 yo M hx DM, liver CA presents with progressively worsening AMS for past few weeks. He has been compliant with his medications including lactulose, but family expresses concern that his ammonia is elevated. He was admitted for the same in July. No recent fevers, chills, SOB, cp. He has fallen twice at home in the past week. Pt found to have elevated ammonia level. Pt also with thrombocytopenia and was seen by heme who felt it it due to his liver disease. Pt treated for hepatic encephalopathy due to his liver cancer. Condition: Fair - Instructions Diet, Activity, Other Instructions: 2 gram sodium low sodium diet Referrals: Ryan Diaz MD [Primary Care Provider] - Disposition: [facility]/HOME HEALTH CARE - Home Medications Comprehensive Discharge Medication List: Ambulatory Orders B Complex with Vitamin C [B-Complex with C] 1 each PO DAILY 09/24/16 Ferrous Sulfate [Feosol] 325 mg PO DAILY 09/24/16 Folic Acid 1 mg PO DAILY 09/24/16 Furosemide [Lasix] 20 mg PO DAILY 09/24/16 Lipase/Protease/Amylase [Creon Dr 24,000 Units Capsule] 1 each PO DAILY Multivitamin [Poly-Vitamin] 1 each PO DAILY 09/24/16 Omeprazole 40 mg PO DAILY 09/24/16 Prednisolone 1% Ophthalmic [Pred Forte 1% -] 0 ml OU DAILY 09/24/16 Rifaximin [Xifaxan -] 550 mg PO DAILY 09/24/16 Spironolactone [Aldactone] 50 mg PO DAILY 09/24/16 Tamsulosin HCl [Flomax] 0.4 mg PO DAILY 09/24/16 Insulin (Levemir) [Levemir Vial] 10 units SQ AM ml 09/30/16 Lactulose (Oral Use) [Cephulac -] 20 gm PO DAILY #200 ml 09/30/16
== END 2016-09-30 11:41 | disposition home health service (06) | DRG 442 ==
LOC: JER 14:36 → JERBED 19:00 → J5S 09-25 01:01
PROVIDERS: ADMIT Internal Medicine; ATTEND Internal Medicine
DX: K72.90 Hepatic failure, unspecified without coma (principal); C22.8 Malignant neoplasm of liver, primary, unspecified as to type; I85.00 Esophageal varices without bleeding; I10 Essential (primary) hypertension; D64.9 Anemia, unspecified; R41.0 Disorientation, unspecified; D69.6 Thrombocytopenia, unspecified; K21.9 Gastro-esophageal reflux disease without esophagitis; K70.30 Alcoholic cirrhosis of liver without ascites; E11.65 Type 2 diabetes mellitus with hyperglycemia; G30.9 Alzheimer's disease, unspecified; F02.80 Dementia in other diseases classified elsewhere, unspecified severity, without behavioral disturbance, psychotic disturbance, mood disturbance, and anxiety; E11.42 Type 2 diabetes mellitus with diabetic polyneuropathy; Z79.4 Long term (current) use of insulin; Z87.891 Personal history of nicotine dependence
CPT/HCPCS: 36415; 70450-TC; 71010-TC; 80053; 81003; 82105; 82140; 83036; 84443; 85025; 85610; 85730; 87086; 93005; 93010; 99282-25

== ENCOUNTER 2016-12-07 16:38 | Inpatient (IN) | payer OTHER ==
--- NOTE | 2016-12-07 16:54 | PDOC ---
History of Present Illness - General History Source: Care Provider, Family Exam Limitations: Dementia - History of Present Illness Initial Comments: 12/07/16 17:56 The patient is a 76 year old male, with a significant past medical history of HTN, Hyperlipidemia, Diabetes, BPH, Liver Cirrhosis (lactulose 3x a day), Liver CA, Guillain [place], Chronic Thrombocytopenia, Ascites, Alzheimer's and Dementia who presents to the emergency department with generalized weakness for the past several days. Patient is accompanied by family members who noticed the patient has been increasingly lethargic. [facility] also notes BG level has been higher than normal (500s-600s) and contacted patients PCP for visit. Patient was sent in to the ED by PCP for further evaluation. Family members deny any change in medications. Allergies: NKA Past surgical history: None Social history: None PCP: Dr. Ryan Diaz <Fiordaliza Romero - Last Filed: 12/07/16 17:56> <Kalpana Maza - Last Filed: 12/07/16 19:23> - General Chief Complaint: Revisit, Lab Variance Stated Complaint: PCP SENT/LAB VARIANCE/HIGH AMMONIA Time Seen by Provider: 12/07/16 16:54 Past History <Fiordaliza Romero - Last Filed: 12/07/16 17:56> - Past Medical History Diabetes: Yes (IDDM, ESOPHAGEAL VARICES) HTN: Yes Hypercholesterolemia: Yes Liver Disease: Yes (CIRRHOSIS, HEPATIC ENCEPHALOPATHY,liver ca) - Immunization History Immunization Up to Date: Yes - Suicide/Smoking/Psychosocial Hx Smoking Status: No Smoking History: Never smoked Have you smoked in the past 12 months: No Number of Cigarettes Smoked Daily: 2,004 If you are a former smoker, when did you quit?: 2003 Information on smoking cessation initiated: No Hx Alcohol Use: No Drug/Substance Use Hx: No Substance Use Type: None <Kalpana Maza - Last Filed: 12/07/16 19:23> - Past Medical History Allergies/Adverse Reactions: Allergies Allergy/AdvReac Type Severity Reaction Status Date / Time No Known Allergies Allergy Verified 12/07/16 16:42 Home Medications: Ambulatory Orders B Complex with Vitamin C [B-Complex with C] 1 each PO DAILY 09/24/16 Ferrous Sulfate [Feosol] 325 mg PO DAILY 09/24/16 Folic Acid 1 mg PO DAILY 09/24/16 Furosemide [Lasix] 20 mg PO DAILY 09/24/16 Lipase/Protease/Amylase [Sidney Apple 24,000 Units Capsule] 1 each PO DAILY Multivitamin [Poly-Vitamin] 1 each PO DAILY 09/24/16 Omeprazole 40 mg PO DAILY 09/24/16 Prednisolone 1% Ophthalmic [Pred Forte 1% -] 0 ml OU DAILY 09/24/16 Rifaximin [Xifaxan -] 550 mg PO DAILY 09/24/16 Spironolactone [Aldactone] 50 mg PO DAILY 09/24/16 Tamsulosin HCl [Flomax] 0.4 mg PO DAILY 09/24/16 Insulin (Levemir) [Levemir Vial] 10 units SQ AM ml 09/30/16 Lactulose (Oral Use) [Cephulac -] 20 gm PO DAILY #200 ml 09/30/16 Review of Systems - Review of Systems Able to Perform ROS?: Yes Comments:: 12/07/16 17:56 GENERAL/CONSTITUTIONAL: No fever or chills. + Generalized weakness. HEAD, EYES, EARS, NOSE AND THROAT: No change in vision. No ear pain or discharge. No sore throat. GASTROINTESTINAL: No nausea, vomiting, diarrhea or constipation. GENITOURINARY: No dysuria, frequency, or change in urination. CARDIOVASCULAR: No chest pain or shortness of breath. RESPIRATORY: No cough, wheezing, or hemoptysis. MUSCULOSKELETAL: No joint or muscle swelling or pain. No neck or back pain. SKIN: No rash NEUROLOGIC: No headache, vertigo, loss of consciousness, or change in strength/ sensation. ENDOCRINE: No increased thirst. No abnormal weight change. HEMATOLOGIC/LYMPHATIC: No anemia, easy bleeding, or history of blood clots. ALLERGIC/IMMUNOLOGIC: No hives or skin allergy. <Fiordaliza Romero - Last Filed: 12/07/16 17:56> *Physical Exam - Vital Signs Last Vital Signs Temp Pulse Resp BP Pulse Ox 98.3 F 95 H 17 127/71 96 12/07/16 16:40 12/07/16 16:40 12/07/16 16:40 12/07/16 16:40 12/07/16 16:40 - Physical Exam Comments: 12/07/16 17:56 GENERAL: Awake, alert, in no acute distress HEAD: No signs of trauma ENT: Auricles normal inspection, hearing grossly normal, nares patent, oropharynx clear without exudates. Moist mucosa NECK: Normal ROM, supple, no lymphadenopathy, JVD, or masses LUNGS: +Diminished breath sounds at the R base. Clear to auscultation bilaterally. No wheezes, and no crackles. HEART: Regular rate and rhythm, normal S1 and S2, no murmurs, rubs or gallops ABDOMEN: Soft, nontender, normoactive bowel sounds. No guarding, no rebound. No masses EXTREMITIES: Normal range of motion, no edema. No clubbing or cyanosis. No cords , erythema, or tenderness BACK: No midline spinal tenderness in cervical/thoracic/lumbar region NEUROLOGICAL: Normal speech, cranial nerves intact, negative pronator drift, 5/ 5 strength in all 4 extremities, normal sensation to light touch in all 4 extremities, normal cerebellar exam, normal gait, normal reflexes and tone SKIN: Warm, Dry, normal turgor, no rashes or lesions noted. <Fiordaliza Romero - Last Filed: 12/07/16 17:56> - Vital Signs Last Vital Signs Temp Pulse Resp BP Pulse Ox 98.3 F 95 H 17 127/71 96 12/07/16 16:40 12/07/16 16:40 12/07/16 16:40 12/07/16 16:40 12/07/16 16:40 <Kalpana Maza - Last Filed: 12/07/16 19:23> ED Treatment Course - LABORATORY CBC & Chemistry Diagram: 12/07/16 17:30 12/07/16 17:30 - ADDITIONAL ORDERS Additional order review: Laboratory Results 12/07/16 17:30 PTT (Actin FS) Cancelled - Medications Given in the ED: ED Medications Discontinued Medications Generic Name Dose Route Start Last Admin Trade Name Freq PRN Reason Stop Dose Admin Sodium Chloride 1,000 ml 12/07/16 17:02 12/07/16 17:55 Normal Saline - IV 12/07/16 17:03 1,000 ml ONCE ONE Administration <Fiordaliza Romero - Last Filed: 12/07/16 17:56> - LABORATORY CBC & Chemistry Diagram: 12/07/16 17:30 12/07/16 17:30 <Kalpana Maza - Last Filed: 12/07/16 19:23> Medical Decision Making - Medical Decision Making 12/07/16 17:28 76yo M hx HTN, hyperlipidemia, diabetes, BPH, liver cirrhosis (lactulose 3x a day), liver ca, 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 Stokes given increasing lethargy and critically high fingersticks. Vitals are unremarkable. Exam remarkable only for diminished breath sounds at the right lung base. Likely hepatic encephalopathy however given hyperglycemia will evaluate the patient for DKA vs HHS -labs -monitor -IVF -CXR -UA/UCx -Blood cx -admit. <Kalpana Maza - Last Filed: 12/07/16 19:23> *DC/Admit/Observation/Transfer - Attestations Scribe Attestion: 12/07/16 17:57 Documentation prepared by Fiordaliza Romero, acting as biomedical scientist for Kalpana Maza MD <Fiordaliza Romero - Last Filed: 12/07/16 17:56> - Discharge Dispostion Admit: Yes - Attestations Physician Attestion: 12/07/16 19:23 I, Dr. Kalpana Maza MD, attest that this document has been prepared under my direction and personally reviewed by me in its entirety. I further attest, that it accurately reflects all work, treatment, procedures and medical decision -making performed by me. <Kalpana Maza - Last Filed: 12/07/16 19:23> Diagnosis at time of Disposition: Hepatic encephalopathy - Discharge Dispostion Condition at time of disposition: Stable
[2016-12-07] MEDS ORDERED: SODIUM CHLORIDE 0.9% 500 ML INFUS.BAG IV ONE (17:02)
[2016-12-07 17:59] LABS: BASOPHIL 0.3 % (0-2.0); EOSINOPHIL 1.3 % (0-4.5); MCH 34.8 pg (25.7-33.7); MCHC 34.1 g/dl (32.0-35.9); MEAN PLT VOLUME 9.7 fl (7.5-11.1); NEUTROPHILS 76.4 % (42.8-82.8); PLATELET COUNT 44 K/MM3 (134-434); RDW 16.2 % (11.9-15.9); WHITE BLOOD COUNT 3.5 K/mm3 (4.0-10.0)
[2016-12-07 18:23] LABS: INR 1.78 (0.82-1.09); PROTHROMBIN TIME (PATIENT) 19.6 SEC (9.98-11.88)
[2016-12-07 18:24] LABS: ALBUMIN 2.3 g/dl (3.4-5.0); ALK PHOS 384 U/L (45-117); ANION GAP 9 (8-16); BILIRUBIN,TOTAL 3.8 mg/dL (0.2-1.0); CALCIUM 8.4 mg/dL (8.5-10.1); CO2 23 mmol/L (21-32); CREATININE 1.4 mg/dL (0.7-1.3); PHOSPHOROUS 2.6 mg/dL (2.5-4.9); SGOT/AST 41 U/L (15-37); SGPT/ALT 18 U/L (12-78); TOT PROT 6.9 g/dl (6.4-8.2)
[2016-12-07 18:25] LABS: ACTIVATED PTT 39.6 SECONDS (26.9-34.4)
[2016-12-07 18:26] LABS: GLUCOSE,RANDOM 327 mg/dL (74-106)
[2016-12-07] MEDS ORDERED: CEFTRIAXONE 50 ML IVPB ONE (18:35)
--- NOTE | 2016-12-07 18:42 | CON.GI ---
Consult Consult Specialty:: gastroenterology Referred by:: Dr Ryan Diaz Reason for Consultation:: Hepatic encephalopathy - History of Present Illness History of Present Illness: 76y/ male with liver cirrhosis complicated by ascitis and Hepatic encephalopathy was admitted because of change in mental status. He had similar admissions in the past. 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: Alzheimer's, Dementia Hepatobiliary: Yes: Cirrhosis - Alcohol/Substance Use Hx Alcohol Use: No - Smoking History Smoking history: Never smoked Have you smoked in the past 12 months: No Aproximately how many cigarettes per day: 2,004 If you are a former smoker, when did you quit?: 2003 - Social History Usual Living Arrangement: With Spouse Home Medications - Allergies Allergies/Adverse Reactions: Allergies Allergy/AdvReac Type Severity Reaction Status Date / Time No Known Allergies Allergy Verified 12/07/16 16:42 - Home Medications Home Medications: Ambulatory Orders B Complex with Vitamin C [B-Complex with C] 1 each PO DAILY 09/24/16 Ferrous Sulfate [Feosol] 325 mg PO DAILY 09/24/16 Folic Acid 1 mg PO DAILY 09/24/16 Furosemide [Lasix] 20 mg PO DAILY 09/24/16 Lipase/Protease/Amylase [Sidney Apple 24,000 Units Capsule] 1 each PO DAILY Multivitamin [Poly-Vitamin] 1 each PO DAILY 09/24/16 Omeprazole 40 mg PO DAILY 09/24/16 Prednisolone 1% Ophthalmic [Pred Forte 1% -] 0 ml OU DAILY 09/24/16 Rifaximin [Xifaxan -] 550 mg PO DAILY 09/24/16 Spironolactone [Aldactone] 50 mg PO DAILY 09/24/16 Tamsulosin HCl [Flomax] 0.4 mg PO DAILY 09/24/16 Insulin (Levemir) [Levemir Vial] 10 units SQ AM ml 09/30/16 Lactulose (Oral Use) [Cephulac -] 20 gm PO DAILY #200 ml 09/30/16 Physical Exam-GI Vital Signs: Vital Signs Temperature 98.3 F 12/07/16 16:40 Pulse Rate 95 H 12/07/16 16:40 Respiratory Rate 17 12/07/16 16:40 Blood Pressure 127/71 12/07/16 16:40 O2 Sat by Pulse Oximetry (%) 96 12/07/16 16:40 Constitutional: Yes: No Distress Eyes: Yes: Conjunctiva Clear, Occular Prosthesis HENT: Yes: Tonsillar Exudate Cardiovascular: Yes: Regular Rate and Rhythm Respiratory: Yes: CTA Bilaterally ...Palpate: Yes: Soft. No: Firm/Rigid, Guarding, Hepatomegaly, Mass, Pulsatile Mass, Splenomegaly, Tenderness Edema: No Neurological: Yes: Confusion Labs: CBC, BMP 12/07/16 17:30 12/07/16 17:30 INR, PTT INR 1.78 (0.82-1.09) H 12/07/16 17:30 CBC,CMP WBC 3.5 K/mm3 (4.0-10.0) L 12/07/16 17:30 RBC 4.26 M/mm3 (4.00-5.60) 12/07/16 17:30 Hgb 14.8 GM/dL (11.7-16.9) D 12/07/16 17:30 Hct 43.5 % (35.4-49) 12/07/16 17:30 MCV 102.0 fl (80-96) H 12/07/16 17:30 MCH 34.8 pg (25.7-33.7) H 12/07/16 17:30 MCHC 34.1 g/dl (32.0-35.9) 12/07/16 17:30 RDW 16.2 % (11.9-15.9) H 12/07/16 17:30 Plt Count 44 K/MM3 (134-434) L 12/07/16 17:30 MPV 9.7 fl (7.5-11.1) 12/07/16 17:30 Neutrophils % 76.4 % (42.8-82.8) 12/07/16 17:30 Lymphocytes % 13.2 % (8-40) D 12/07/16 17:30 Monocytes % 8.8 % (3.8-10.2) 12/07/16 17:30 Eosinophils % 1.3 % (0-4.5) 12/07/16 17:30 Basophils % 0.3 % (0-2.0) 12/07/16 17:30 Sodium 137 mmol/L (136-145) 12/07/16 17:30 Potassium 4.2 mmol/L (3.5-5.1) 12/07/16 17:30 Chloride 105 mmol/L (98-107) 12/07/16 17:30 Carbon Dioxide 23 mmol/L (21-32) 12/07/16 17:30 Anion Gap 9 (8-16) 12/07/16 17:30 BUN 14 mg/dL (7-18) 12/07/16 17:30 Creatinine 1.4 mg/dL (0.7-1.3) H D 12/07/16 17:30 Creat Clearance w eGFR 49.14 (>60) 12/07/16 17:30 Random Glucose 327 mg/dL (74-106) H* D 12/07/16 17:30 Lactic Acid 3.0 mmol/L (0.4-2.0) H* 12/07/16 17:30 Calcium 8.4 mg/dL (8.5-10.1) L 12/07/16 17:30 Phosphorus 2.6 mg/dL (2.5-4.9) 12/07/16 17:30 Magnesium 2.0 mg/dL (1.8-2.4) D 12/07/16 17:30 Total Bilirubin 3.8 mg/dL (0.2-1.0) H D 12/07/16 17:30 AST 41 U/L (15-37) H 12/07/16 17:30 ALT 18 U/L (12-78) 12/07/16 17:30 Alkaline Phosphatase 384 U/L (45-117) H 12/07/16 17:30 Ammonia 127.09 umol/L (11-32) H 12/07/16 17:30 Total Protein 6.9 g/dl (6.4-8.2) 12/07/16 17:30 Albumin 2.3 g/dl (3.4-5.0) L 12/07/16 17:30 Lipase 313 U/L (73-393) 12/07/16 17:30 Problem List - Problems (1) Alcoholic cirrhosis Code(s): K70.30 - ALCOHOLIC CIRRHOSIS OF LIVER WITHOUT ASCITES (2) Hepatic encephalopathy Assessment/Plan: r> continue xifaxan and lactulose Ceftriaxone 1 gram daily Code(s): K72.90 - HEPATIC FAILURE, UNSPECIFIED WITHOUT COMA
[2016-12-07 18:43] LABS: TROPONIN I < 0.02 ng/ml (0.00-0.05)
[2016-12-07 18:48] LABS: THYROID STIMULATING HORMONE 1.47 uIU/ml (0.358-3.74)
[2016-12-07] MEDS ORDERED: LACTULOSE 20 GM/30 ML UDC (FOR ORAL USE ONLY) ONE (19:08)
[2016-12-07 19:33] LABS: VENOUS BLOOD GAS HCO3 19.6 meq/L (19-25)
[2016-12-07 19:35] LABS: VENOUS PH 7.44 (7.32-7.42)
[2016-12-07] MEDS ORDERED: RIFAXIMIN 550 MG TABLET (UD) PO SCH (22:00)
[2016-12-07] MEDS: LACTULOSE 20 GM/30 ML UDC (FOR ORAL USE ONLY) PO SCH (22:06)
[2016-12-07 22:15] LABS: URINE APPEARANCE CLEAR; URINE BILIRUBIN NEGATIVE (NEGATIVE); URINE BLOOD NEGATIVE (NEGATIVE); URINE COLOR AMBER; URINE GLUCOSE (UA) 3+ (NEGATIVE); URINE KETONE NEGATIVE (NEGATIVE); URINE NITRITE NEGATIVE (NEGATIVE); URINE PROTEIN NEGATIVE (NEGATIVE)
[2016-12-08 02:59] VITALS: BMI 30.6
--- NOTE | 2016-12-08 03:01 | HP ---
Admitting History and Physical - Admission History of Present Illness: Pt is a 76 y/o male, with PMH significant for HTN, Hyperlipidemia, Diabetes, BPH , Liver Cirrhosis (lactulose 3x a day), Liver CA, Guillain [place], chronic thrombocytopenia, Ascites, Alzheimer's and Dementia who presents to the emergency department with generalized weakness for the past several days. Patient is accompanied by family members who noticed the patient has been increasingly lethargic. Patients grandaughter also notes BG level has been higher than normal (500s-600s). 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: Alzheimer's, Dementia Hepatobiliary: Yes: Cirrhosis - Smoking History Smoking history: Former smoker Have you smoked in the past 12 months: No Aproximately how many cigarettes per day: 2,004 If you are a former smoker, when did you quit?: 2003 - Alcohol/Substance Use Hx Alcohol Use: No Home Medications - Allergies Allergies/Adverse Reactions: Allergies Allergy/AdvReac Type Severity Reaction Status Date / Time No Known Allergies Allergy Verified 12/07/16 16:42 - Home Medications Home Medications: Ambulatory Orders B Complex with Vitamin C [B-Complex with C] 1 each PO DAILY 09/24/16 Ferrous Sulfate [Feosol] 325 mg PO DAILY 09/24/16 Folic Acid 1 mg PO DAILY 09/24/16 Furosemide [Lasix] 20 mg PO DAILY 09/24/16 Lipase/Protease/Amylase [Creon Dr 24,000 Units Capsule] 1 each PO DAILY Multivitamin [Poly-Vitamin] 1 each PO DAILY 09/24/16 Omeprazole 40 mg PO DAILY 09/24/16 Prednisolone 1% Ophthalmic [Pred Forte 1% -] 0 ml OU DAILY 09/24/16 Rifaximin [Xifaxan -] 550 mg PO DAILY 09/24/16 Spironolactone [Aldactone] 50 mg PO DAILY 09/24/16 Tamsulosin HCl [Flomax] 0.4 mg PO DAILY 09/24/16 Insulin (Levemir) [Levemir Vial] 10 units SQ AM ml 09/30/16 Lactulose (Oral Use) [Cephulac -] 20 gm PO DAILY #200 ml 09/30/16 Family Disease History - Family Disease History Family History: Unable to Obtain Review of Systems Unable to obtain ROS, reason: Dementia Physical Examination Vital Signs: Vital Signs Temperature 97.5 F L 12/08/16 02:54 Pulse Rate 89 12/08/16 01:25 Respiratory Rate 18 12/08/16 02:54 Blood Pressure 122/76 12/08/16 02:54 O2 Sat by Pulse Oximetry (%) 95 12/08/16 01:25 Constitutional: Yes: No Distress HENT: Yes: WNL Neck: Yes: WNL, Supple Cardiovascular: Yes: WNL, Regular Rate and Rhythm Respiratory: Yes: WNL, Regular, CTA Bilaterally Gastrointestinal: Yes: WNL, Normal Bowel Sounds, Soft Problem List - Problems (1) Altered mental state Assessment/Plan: Due to metabolic encephalopathy from chronic liver disease Follow ammonia level Code(s): R41.82 - ALTERED MENTAL STATUS, UNSPECIFIED Qualifiers: Altered mental status type: somnolence Qualified Code(s): R40.0 - Somnolence; R40.0 - Somnolence (2) Hepatic encephalopathy Assessment/Plan: Cont lactulose Cont to follow ammonia level Code(s): K72.90 - HEPATIC FAILURE, UNSPECIFIED WITHOUT COMA (3) Diabetes Assessment/Plan: Uncontrolled diabetes Cont sliding scale w/ coverage Cont levemir Endo consult Code(s): E11.9 - TYPE 2 DIABETES MELLITUS WITHOUT COMPLICATIONS Qualifiers: Diabetes mellitus type: type 1 Diabetes mellitus complication status: without complication Qualified Code(s): E10.9 - Type 1 diabetes mellitus without complications; E10.9 - Type 1 diabetes mellitus without complications; E10.9 - Type 1 diabetes mellitus without complications; E10.9 - Type 1 diabetes mellitus without complications (4) Anemia Assessment/Plan: Cont feso4/folic acid Code(s): D64.9 - ANEMIA, UNSPECIFIED (5) Chronic liver disease Code(s): K76.9 - LIVER DISEASE, UNSPECIFIED (6) Dementia Code(s): F03.90 - UNSPECIFIED DEMENTIA WITHOUT BEHAVIORAL DISTURBANCE (7) Thrombocytopenia Code(s): D69.6 - THROMBOCYTOPENIA, UNSPECIFIED
[2016-12-08] MEDS: LACTULOSE 20 GM/30 ML UDC (FOR ORAL USE ONLY) PO SCH ×3 (06:27→22:09)
[2016-12-08] MEDS: INSULIN DETEMIR 100 UNITS/ML MDV SQ SCH (06:28)
[2016-12-08] MEDS: INSULIN SLIDING SCALE (NOVOLOG) 1 VIAL SQ SCH ×4 (06:30→22:09)
[2016-12-08 07:41] LABS: URINE LEUK ESTERASE Negative (NEGATIVE)
[2016-12-08] MEDS ORDERED: PT OWN MED DRAWER 7, Y5N ONE (07:55)
[2016-12-08 08:08] LABS: BASOPHIL 0.4 % (0-2.0); EOSINOPHIL 2.3 % (0-4.5); MCH 34.2 pg (25.7-33.7); MCHC 33.7 g/dl (32.0-35.9); MEAN CELL VOLUME 101.4 fl (80-96); MEAN PLT VOLUME 9.3 fl (7.5-11.1); NEUTROPHILS 72.9 % (42.8-82.8); RDW 15.9 % (11.9-15.9); WHITE BLOOD COUNT 3.1 K/mm3 (4.0-10.0)
[2016-12-08 08:16] LABS: PLATELET COUNT 32 K/MM3 (134-434)
[2016-12-08] MEDS: LIPASE/PROTEASE/AMYLASE 6,000 UNIT CAPSULE PO SCH (08:19)
[2016-12-08 08:33] LABS: ANION GAP 10 (8-16); CALCIUM 8.1 mg/dL (8.5-10.1); CO2 24 mmol/L (21-32); CREATININE 0.9 mg/dL (0.7-1.3); GLUCOSE,RANDOM 117 mg/dL (74-106); SGOT/AST 35 U/L (15-37); SGPT/ALT 15 U/L (12-78)
[2016-12-08 08:34] LABS: ALK PHOS 281 U/L (45-117); BILIRUBIN,TOTAL 4.2 mg/dL (0.2-1.0); TOT PROT 5.7 g/dl (6.4-8.2)
[2016-12-08] MEDS: TAMSULOSIN HCL 0.4 MG CAP.ER.24H (FP) PO SCH (09:19)
[2016-12-08] MEDS: FOLIC ACID 1 MG TABLET (FP) PO SCH (09:20)
[2016-12-08] MEDS: FERROUS SO4 325 MG TABLET (FP) PO SCH (09:20)
[2016-12-08] MEDS: SPIRONOLACTONE 25 MG TABLET (FP) PO SCH (09:20)
[2016-12-08] MEDS: MULTIVITAMINS (DAILY MVI) TABLET (FP) PO SCH (09:20)
[2016-12-08] MEDS: PANTOPRAZOLE 40 MG TABLET (FP) PO SCH (09:20)
[2016-12-08] MEDS: RIFAXIMIN 550 MG TABLET (UD) PO SCH (09:21)
[2016-12-08] MEDS: prednisoLONE ACETATE 1% OPHTH SUSP 5 ML BOTTLE OU SCH (09:21)
[2016-12-08] MEDS: FUROSEMIDE 20 MG TABLET (FP) PO SCH (09:21)
--- NOTE | 2016-12-08 12:01 | EKG ---
Test Reason : Blood Pressure : / mmHG Vent. Rate : 076 BPM Atrial Rate : 076 BPM P-R Int : 138 ms QRS Dur : 094 ms QT Int : 422 ms P-R-T Axes : 047 -26 019 degrees QTc Int : 474 ms NORMAL SINUS RHYTHM INFERIOR INFARCT (CITED ON OR BEFORE 24-SEP-2016) ABNORMAL ECG WHEN COMPARED WITH ECG OF 24-SEP-2016 17:02, NO SIGNIFICANT CHANGE WAS FOUND Confirmed by BARRY DAWN MD ([id number]) on 12/08/2016 12:01:34 PM Referred By: Confirmed By:BARRY DAWN MD
--- NOTE | 2016-12-08 12:56 | CONSULT ---
Consult Consult Specialty:: Hematology/Oncology - History of Present Illness History of Present Illness: is a 76 y/o male with Hx of alzheimers dementia, completely dependant on iADLS due to his dementia, DM, liver cancer that has been admitted with worsening altered mental status , had similar admissions in the past. Hematology consulted for thrombocytopenia. for his liver ca he is not on any Tx. 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: Alzheimer's, Dementia Hepatobiliary: Yes: Cirrhosis - Alcohol/Substance Use Hx Alcohol Use: No - Smoking History Smoking history: Never smoked Have you smoked in the past 12 months: No Aproximately how many cigarettes per day: 2,004 If you are a former smoker, when did you quit?: 2003 - Social History Usual Living Arrangement: With Spouse Home Medications - Allergies Allergies/Adverse Reactions: Allergies Allergy/AdvReac Type Severity Reaction Status Date / Time No Known Allergies Allergy Verified 12/07/16 16:42 - Home Medications Home Medications: Ambulatory Orders B Complex with Vitamin C [B-Complex with C] 1 each PO DAILY 09/24/16 Ferrous Sulfate [Feosol] 325 mg PO DAILY 09/24/16 Folic Acid 1 mg PO DAILY 09/24/16 Furosemide [Lasix] 20 mg PO DAILY 09/24/16 Lipase/Protease/Amylase [Creon Dr 24,000 Units Capsule] 1 each PO DAILY Multivitamin [Poly-Vitamin] 1 each PO DAILY 09/24/16 Omeprazole 40 mg PO DAILY 09/24/16 Prednisolone 1% Ophthalmic [Pred Forte 1% -] 0 ml OU DAILY 09/24/16 Rifaximin [Xifaxan -] 550 mg PO DAILY 09/24/16 Spironolactone [Aldactone] 50 mg PO DAILY 09/24/16 Tamsulosin HCl [Flomax] 0.4 mg PO DAILY 09/24/16 Insulin (Levemir) [Levemir Vial] 10 units SQ AM ml 09/30/16 Lactulose (Oral Use) [Cephulac -] 20 gm PO DAILY #200 ml 09/30/16 Physical Exam Vital Signs: Vital Signs Temperature 98.2 F 12/08/16 06:00 Pulse Rate 84 12/08/16 06:00 Respiratory Rate 18 12/08/16 06:00 Blood Pressure 133/71 12/08/16 06:00 O2 Sat by Pulse Oximetry (%) 95 12/08/16 03:02 Constitutional: Yes: Well Nourished, No Distress HENT: Yes: Atraumatic, Normocephalic Neck: Yes: Supple, Trachea Midline Cardiovascular: Yes: Regular Rate and Rhythm Respiratory: Yes: Regular, CTA Bilaterally Gastrointestinal: Yes: Abdomen, Obese Edema: No Neurological: Yes: Alert Labs: CBC, BMP 12/08/16 06:58 12/08/16 06:58 Problem List - Problems (1) Thrombocytopenia Code(s): D69.6 - THROMBOCYTOPENIA, UNSPECIFIED (2) Hepatic encephalopathy Code(s): K72.90 - HEPATIC FAILURE, UNSPECIFIED WITHOUT COMA (3) Chronic liver disease Code(s): K76.9 - LIVER DISEASE, UNSPECIFIED (4) Liver cancer Code(s): C22.9 - MALIG NEOPLASM OF LIVER, NOT SPECIFIED PRIMARY OR SEC (5) Hyperammonemia Code(s): E72.20 - DISORDER OF UREA CYCLE METABOLISM, UNSPECIFIED (6) Hyperglycemia Code(s): R73.9 - HYPERGLYCEMIA, UNSPECIFIED Assessment/Plan Thrombocytopenia likely from the underlying liver failure. close to his baseline supportive care if platelets fall <20, ghassan transfuse for labs in the am. US abdomen if any procedure planned will reverse coagulopathy Spoke to the grand daughter zakia over the phone, they wanted to continue supportive care. They wanted him to be home with them once ready for discharge.
[2016-12-09] MEDS: INSULIN SLIDING SCALE (NOVOLOG) 1 VIAL SQ SCH ×4 (06:26→21:57)
[2016-12-09] MEDS: LACTULOSE 20 GM/30 ML UDC (FOR ORAL USE ONLY) PO SCH ×3 (06:26→21:54)
[2016-12-09 07:28] LABS: BASOPHIL 0.5 % (0-2.0); EOSINOPHIL 3.8 % (0-4.5); MCH 34.4 pg (25.7-33.7); MCHC 34.2 g/dl (32.0-35.9); MEAN CELL VOLUME 100.5 fl (80-96); MEAN PLT VOLUME 9.9 fl (7.5-11.1); NEUTROPHILS 67.8 % (42.8-82.8); RDW 15.2 % (11.9-15.9); WHITE BLOOD COUNT 2.7 K/mm3 (4.0-10.0)
[2016-12-09 07:35] LABS: PLATELET COUNT 35 K/MM3 (134-434)
[2016-12-09 07:43] LABS: INR 1.85 (0.82-1.09); PROTHROMBIN TIME (PATIENT) 20.9 SEC (9.98-11.88)
[2016-12-09 07:46] LABS: ACTIVATED PTT 39.3 SECONDS (26.9-34.4)
[2016-12-09 07:55] LABS: ALBUMIN 2.1 g/dl (3.4-5.0); ANION GAP 9 (8-16); CALCIUM 8.1 mg/dL (8.5-10.1); CO2 26 mmol/L (21-32); CREATININE 0.8 mg/dL (0.7-1.3); GLUCOSE,RANDOM 92 mg/dL (74-106); SGOT/AST 38 U/L (15-37); SGPT/ALT 14 U/L (12-78)
[2016-12-09 08:21] LABS: ALK PHOS 224 U/L (45-117); BILIRUBIN,TOTAL 6.1 mg/dL (0.2-1.0); TOT PROT 5.7 g/dl (6.4-8.2)
[2016-12-09] MEDS: TAMSULOSIN HCL 0.4 MG CAP.ER.24H (FP) PO SCH (08:38)
[2016-12-09] MEDS: FOLIC ACID 1 MG TABLET (FP) PO SCH (09:43)
[2016-12-09] MEDS: SPIRONOLACTONE 25 MG TABLET (FP) PO SCH (09:43)
[2016-12-09] MEDS: FUROSEMIDE 20 MG TABLET (FP) PO SCH (09:43)
[2016-12-09] MEDS: FERROUS SO4 325 MG TABLET (FP) PO SCH (09:43)
[2016-12-09] MEDS: MULTIVITAMINS (DAILY MVI) TABLET (FP) PO SCH (09:43)
[2016-12-09] MEDS: PANTOPRAZOLE 40 MG TABLET (FP) PO SCH (09:43)
[2016-12-09] MEDS: LIPASE/PROTEASE/AMYLASE 6,000 UNIT CAPSULE PO SCH (09:44)
[2016-12-09] MEDS: RIFAXIMIN 550 MG TABLET (UD) PO SCH (09:44)
[2016-12-09] MEDS: prednisoLONE ACETATE 1% OPHTH SUSP 5 ML BOTTLE OU SCH (09:44)
[2016-12-09] MEDS ORDERED: INSULIN (NOVOLOG) ASPART 100 UNITS/ML 10ML VIAL ONE (16:38)
[2016-12-09] MEDS: INSULIN DETEMIR 100 UNITS/ML MDV SQ SCH (19:45)
--- NOTE | 2016-12-09 21:10 | PN ---
Progress Note, Physician - Current Medication List Current Medications: Active Medications Ferrous Sulfate (Feosol -) 325 mg PO DAILY [facility] Last Admin: 12/09/16 09:43 Dose: 325 mg Folic Acid (Folic Acid -) 1 mg PO DAILY [facility] Last Admin: 12/09/16 09:43 Dose: 1 mg Furosemide (Lasix -) 20 mg PO DAILY [facility] Last Admin: 12/09/16 09:43 Dose: 20 mg Insulin Aspart (Novolog Vial Sliding Scale -) 1 vial SQ ACHS [facility] PRN Reason: Protocol Last Admin: 12/09/16 16:42 Dose: 4 units Insulin Detemir (Levemir Vial) 10 units SQ AM [facility] Last Admin: 12/09/16 19:45 Dose: Not Given Lactulose (Cephulac (Oral Use)) 20 gm PO TID [facility] Last Admin: 12/09/16 14:08 Dose: 20 gm Multivitamins/Minerals/Vitamin C (Tab-A-Vit -) 1 tab PO DAILY [facility] Last Admin: 12/09/16 09:43 Dose: 1 tab Pancrelipase (Creon Dr 6,000 Units Capsule) 4 cap PO 0800 [facility] Last Admin: 12/09/16 09:44 Dose: 4 cap Pantoprazole Sodium (Protonix -) 40 mg PO DAILY [facility] Last Admin: 12/09/16 09:43 Dose: 40 mg Prednisolone Acetate (Pred Forte 1% -) 1 drop OU DAILY [facility] Last Admin: 12/09/16 09:44 Dose: 1 drop Rifaximin (Xifaxan -) 550 mg PO DAILY [facility] Last Admin: 12/09/16 09:44 Dose: 550 mg Spironolactone (Aldactone -) 50 mg PO DAILY [facility] Last Admin: 12/09/16 09:43 Dose: 50 mg Tamsulosin HCl (Flomax -) 0.4 mg PO DAILY@0830 [facility] Last Admin: 12/09/16 08:38 Dose: 0.4 mg - Objective Vital Signs: Vital Signs Temperature 98.9 F 12/09/16 18:00 Pulse Rate 79 12/09/16 18:00 Respiratory Rate 20 12/09/16 18:00 Blood Pressure 112/58 12/09/16 18:00 O2 Sat by Pulse Oximetry (%) 95 12/09/16 09:00 Constitutional: Yes: No Distress Neck: Yes: WNL, Supple Cardiovascular: Yes: WNL, Regular Rate and Rhythm Respiratory: Yes: WNL, Regular, CTA Bilaterally Gastrointestinal: Yes: Normal Bowel Sounds, Distention Labs: CBC, BMP 12/09/16 06:25 12/09/16 06:25 INR, PTT INR 1.85 (0.82-1.09) H 12/09/16 06:25 Fibrinogen 176.0 mg/dL (238-498) L 12/09/16 06:25 Problem List - Problems (1) Altered mental state Assessment/Plan: Due to metabolic encephalopathy from chronic liver disease Follow ammonia level Code(s): R41.82 - ALTERED MENTAL STATUS, UNSPECIFIED Qualifiers: Altered mental status type: somnolence Qualified Code(s): R40.0 - Somnolence; R40.0 - Somnolence (2) Hepatic encephalopathy Assessment/Plan: Cont lactulose Cont to follow ammonia level Code(s): K72.90 - HEPATIC FAILURE, UNSPECIFIED WITHOUT COMA (3) Diabetes Assessment/Plan: Uncontrolled diabetes Cont sliding scale w/ coverage Cont levemir Endo consult Code(s): E11.9 - TYPE 2 DIABETES MELLITUS WITHOUT COMPLICATIONS Qualifiers: Diabetes mellitus type: type 1 Diabetes mellitus complication status: without complication Qualified Code(s): E10.9 - Type 1 diabetes mellitus without complications; E10.9 - Type 1 diabetes mellitus without complications; E10.9 - Type 1 diabetes mellitus without complications; E10.9 - Type 1 diabetes mellitus without complications (4) Anemia Assessment/Plan: Cont feso4/folic acid Code(s): D64.9 - ANEMIA, UNSPECIFIED (5) Chronic liver disease Assessment/Plan: As per GI Code(s): K76.9 - LIVER DISEASE, UNSPECIFIED (6) Thrombocytopenia Assessment/Plan: Monitor plts If plts less than 20,000 will transfuse Due to liver dz Heme consult noted Code(s): D69.6 - THROMBOCYTOPENIA, UNSPECIFIED (7) Dementia Code(s): F03.90 - UNSPECIFIED DEMENTIA WITHOUT BEHAVIORAL DISTURBANCE
--- NOTE | 2016-12-09 23:09 | CONSULT ---
Consult Consult Specialty:: endocrine Referred by:: dr.[email or web address] kitchen Reason for Consultation:: diabetes mellitus - History of Present Illness Chief Complaint: confused History of Present Illness: 76 y male [facility] diabetes mellitus htn,liver cancer,hepatic cirhosis,dementia, admitted with hyperglycemia,bs 500,s confused lethargic,weak, - Past Medical History REGISTERED NURSES: Yes: Alzheimer's, Dementia Hepatobiliary: Yes: Cirrhosis - Alcohol/Substance Use Hx Alcohol Use: No - Smoking History Smoking history: Former smoker Have you smoked in the past 12 months: No Aproximately how many cigarettes per day: 2,004 If you are a former smoker, when did you quit?: 2003 - Social History Usual Living Arrangement: With Spouse Home Medications - Allergies Allergies/Adverse Reactions: Allergies Allergy/AdvReac Type Severity Reaction Status Date / Time No Known Allergies Allergy Verified 12/07/16 16:42 - Home Medications Home Medications: Ambulatory Orders B Complex with Vitamin C [B-Complex with C] 1 each PO DAILY 09/24/16 Ferrous Sulfate [Feosol] 325 mg PO DAILY 09/24/16 Folic Acid 1 mg PO DAILY 09/24/16 Furosemide [Lasix] 20 mg PO DAILY 09/24/16 Lipase/Protease/Amylase [Sidney Apple 24,000 Units Capsule] 1 each PO DAILY Multivitamin [Poly-Vitamin] 1 each PO DAILY 09/24/16 Omeprazole 40 mg PO DAILY 09/24/16 Prednisolone 1% Ophthalmic [Pred Forte 1% -] 0 ml OU DAILY 09/24/16 Rifaximin [Xifaxan -] 550 mg PO DAILY 09/24/16 Spironolactone [Aldactone] 50 mg PO DAILY 09/24/16 Tamsulosin HCl [Flomax] 0.4 mg PO DAILY 09/24/16 Insulin (Levemir) [Levemir Vial] 10 units SQ AM ml 09/30/16 Lactulose (Oral Use) [Cephulac -] 20 gm PO DAILY #200 ml 09/30/16 Review of Systems Unable to obtain ROS, reason: confused Physical Exam Vital Signs: Vital Signs Temperature 98.9 F 12/09/16 18:00 Pulse Rate 79 12/09/16 18:00 Respiratory Rate 20 12/09/16 18:00 Blood Pressure 112/58 12/09/16 18:00 O2 Sat by Pulse Oximetry (%) 95 12/09/16 09:00 Constitutional: Yes: Anxious Eyes: Yes: EOM Intact HENT: Yes: Normocephalic Neck: Yes: Trachea Midline Cardiovascular: Yes: Regular Rate and Rhythm Respiratory: Yes: CTA Bilaterally Gastrointestinal: Yes: Normal Bowel Sounds, Hepatomegaly ...Rectal Exam: Yes: Deferred Renal/: Yes: WNL Breast(s): Yes: WNL Extremities: Yes: WNL Edema: No Neurological: Yes: Alert, Confusion, Weakness ...Motor Strength: WNL Psychiatric: Yes: Alert Labs: CBC, BMP 12/09/16 06:25 12/09/16 06:25 Problem List - Problems (1) Altered mental state Code(s): R41.82 - ALTERED MENTAL STATUS, UNSPECIFIED Qualifiers: Altered mental status type: somnolence Qualified Code(s): R40.0 - Somnolence; R40.0 - Somnolence (2) Anemia Code(s): D64.9 - ANEMIA, UNSPECIFIED (3) Chronic liver disease Code(s): K76.9 - LIVER DISEASE, UNSPECIFIED (4) Confused Code(s): R41.0 - DISORIENTATION, UNSPECIFIED (5) Dementia Code(s): F03.90 - UNSPECIFIED DEMENTIA WITHOUT BEHAVIORAL DISTURBANCE (6) Controlled diabetes mellitus with complication Code(s): E11.8 - TYPE 2 DIABETES MELLITUS WITH UNSPECIFIED COMPLICATIONS Assessment/Plan Current Active Problems Hepatic encephalopathy (Acute) diabetes mellitus hyperglycemia confused / dementia Abnormal Lab Results 12/09/16 12/09/16 12/09/16 06:25 06:25 06:25 WBC 2.7 L RBC 3.81 L MCV 100.5 H MCH 34.4 H Plt Count 35 L* PT with INR 20.90 H INR 1.85 H PTT (Actin FS) 39.3 H Fibrinogen 176.0 L Calcium 8.1 L Total Bilirubin 6.1 H D AST 38 H Alkaline Phosphatase 224 H D Total Protein 5.7 L Albumin 2.1 L Vitamin B12 1518 H Serum Folate 19 H Laboratory Results - last 24 hr 12/08/16 12/08/16 12/08/16 21:36 21:38 23:57 WBC RBC Hgb Hct MCV MCH MCHC RDW Plt Count MPV Neutrophils % Lymphocytes % Monocytes % Eosinophils % Basophils % PT with INR INR PTT (Actin FS) Fibrinogen Sodium Potassium Chloride Carbon Dioxide Anion Gap BUN Creatinine Creat Clearance w eGFR POC Glucometer 79 71 135 Random Glucose Calcium Total Bilirubin AST ALT Alkaline Phosphatase Total Protein Albumin Vitamin B12 Serum Folate 12/09/16 12/09/16 12/09/16 06:24 06:25 06:25 WBC RBC Hgb Hct MCV MCH MCHC RDW Plt Count MPV Neutrophils % Lymphocytes % Monocytes % Eosinophils % Basophils % PT with INR 20.90 H INR 1.85 H PTT (Actin FS) 39.3 H Fibrinogen 176.0 L Sodium 141 Potassium 3.7 Chloride 106 Carbon Dioxide 26 Anion Gap 9 BUN 13 Creatinine 0.8 Creat Clearance w eGFR > 60 POC Glucometer 94 Random Glucose 92 D Calcium 8.1 L Total Bilirubin 6.1 H D AST 38 H ALT 14 Alkaline Phosphatase 224 H D Total Protein 5.7 L Albumin 2.1 L Vitamin B12 1518 H Serum Folate 19 H 12/09/16 12/09/16 12/09/16 06:25 11:50 16:05 WBC 2.7 L RBC 3.81 L Hgb 13.1 Hct 38.3 MCV 100.5 H MCH 34.4 H MCHC 34.2 RDW 15.2 Plt Count 35 L* MPV 9.9 Neutrophils % 67.8 Lymphocytes % 18.6 D Monocytes % 9.3 Eosinophils % 3.8 Basophils % 0.5 PT with INR INR PTT (Actin FS) Fibrinogen Sodium Potassium Chloride Carbon Dioxide Anion Gap BUN Creatinine Creat Clearance w eGFR POC Glucometer 185 207 Random Glucose Calcium Total Bilirubin AST ALT Alkaline Phosphatase Total Protein Albumin Vitamin B12 Serum Folate 12/09/16 21:56 WBC RBC Hgb Hct MCV MCH MCHC RDW Plt Count MPV Neutrophils % Lymphocytes % Monocytes % Eosinophils % Basophils % PT with INR INR PTT (Actin FS) Fibrinogen Sodium Potassium Chloride Carbon Dioxide Anion Gap BUN Creatinine Creat Clearance w eGFR POC Glucometer 104 Random Glucose Calcium Total Bilirubin AST ALT Alkaline Phosphatase Total Protein Albumin Vitamin B12 Serum Folate plan: bgm qid novolog insulin use low dose levemir to low avg sugar ck hba1c concur with xyfaxan Laboratory Tests 09/25/16 09/25/16 09/25/16 06:10 06:10 08:04 POC Glucometer 91 Hemoglobin A1c % 8.5 H D TSH 1.54 07/09/25/16 09/25/16 12:14 17:35 21:26 POC Glucometer 255 216 226 Hemoglobin A1c % TSH 12/07/16 12/09/16 12/09/16 17:30 06:24 11:50 POC Glucometer 94 185 Hemoglobin A1c % TSH 1.47 D 12/09/16 12/09/16 16:05 21:56 POC Glucometer 207 104 Hemoglobin A1c % TSH
[2016-12-10] MEDS: LACTULOSE 20 GM/30 ML UDC (FOR ORAL USE ONLY) PO SCH ×3 (06:40→21:59)
[2016-12-10] MEDS: INSULIN DETEMIR 100 UNITS/ML MDV SQ SCH (06:40)
[2016-12-10] MEDS: INSULIN SLIDING SCALE (NOVOLOG) 1 VIAL SQ SCH ×4 (06:40→21:59)
[2016-12-10 07:20] LABS: BASOPHIL 0.8 % (0-2.0); EOSINOPHIL 3.3 % (0-4.5); MCH 34.7 pg (25.7-33.7); MCHC 34.4 g/dl (32.0-35.9); MEAN CELL VOLUME 100.8 fl (80-96); MEAN PLT VOLUME 10.5 fl (7.5-11.1); NEUTROPHILS 64.8 % (42.8-82.8); PLATELET COUNT 38 K/MM3 (134-434); RDW 15.1 % (11.9-15.9); WHITE BLOOD COUNT 2.9 K/mm3 (4.0-10.0)
[2016-12-10 07:33] LABS: ANION GAP 5 (8-16); CALCIUM 8.1 mg/dL (8.5-10.1); CO2 26 mmol/L (21-32); CREATININE 0.9 mg/dL (0.7-1.3); GLUCOSE,RANDOM 86 mg/dL (74-106); SGOT/AST 43 U/L (15-37); SGPT/ALT 14 U/L (12-78)
[2016-12-10 07:35] LABS: ALK PHOS 183 U/L (45-117); TOT PROT 5.4 g/dl (6.4-8.2)
[2016-12-10] MEDS: FOLIC ACID 1 MG TABLET (FP) PO SCH (09:05)
[2016-12-10] MEDS: FERROUS SO4 325 MG TABLET (FP) PO SCH (09:05)
[2016-12-10] MEDS: TAMSULOSIN HCL 0.4 MG CAP.ER.24H (FP) PO SCH (09:05)
[2016-12-10] MEDS: MULTIVITAMINS (DAILY MVI) TABLET (FP) PO SCH (09:05)
[2016-12-10] MEDS: PANTOPRAZOLE 40 MG TABLET (FP) PO SCH (09:05)
[2016-12-10] MEDS: LIPASE/PROTEASE/AMYLASE 6,000 UNIT CAPSULE PO SCH (09:05)
[2016-12-10] MEDS: RIFAXIMIN 550 MG TABLET (UD) PO SCH (09:06)
[2016-12-10] MEDS: prednisoLONE ACETATE 1% OPHTH SUSP 5 ML BOTTLE OU SCH (09:06)
[2016-12-10] MEDS: FUROSEMIDE 20 MG TABLET (FP) PO SCH (10:37)
[2016-12-10] MEDS: SPIRONOLACTONE 25 MG TABLET (FP) PO SCH (10:37)
[2016-12-10] MEDS ORDERED: INSULIN (NOVOLOG) ASPART 100 UNITS/ML 10ML VIAL ONE ×4 (11:09→21:25)
--- NOTE | 2016-12-10 15:17 | PN ---
Progress Note (short form) - Note Progress Note: pt seen and examined. Chart reviewed, MS at baseline at bedside O/E: Constitutional: Yes: Well Nourished, No Distress HENT: Yes: Atraumatic, Normocephalic Neck: Yes: Supple, Trachea Midline Cardiovascular: Yes: Regular Rate and Rhythm Respiratory: Yes: Regular, CTA Bilaterally Gastrointestinal: Yes: Abdomen, Obese Edema: No Neurological: Yes: Alert Temp Pulse Resp BP Pulse Ox 98 F 76 18 114/66 96 12/10/16 08:54 12/10/16 10:36 12/10/16 10:36 12/10/16 10:36 12/10/16 09:00 CBC, BMP 12/10/16 06:15 12/10/16 06:15 Current Medications Generic Name Dose Route Start Last Admin Trade Name Freq PRN Reason Stop Dose Admin Ferrous Sulfate 325 mg 12/08/16 10:00 12/10/16 09:05 Feosol - PO 325 mg DAILY NO Administration Folic Acid 1 mg 12/08/16 10:00 12/10/16 09:05 Folic Acid - PO 1 mg DAILY NO Administration Furosemide 20 mg 12/08/16 10:00 12/10/16 10:37 Lasix - PO 20 mg DAILY NO Administration Insulin Aspart 1 vial 12/08/16 07:00 12/10/16 11:11 Novolog Vial Sliding Scale - SQ 4 units ACHS NO Administration Protocol Insulin Detemir 10 units 12/08/16 07:00 12/10/16 06:40 Levemir Vial SQ Not Given AM NO Lactulose 20 gm 12/07/16 22:00 12/10/16 13:07 Cephulac (Oral Use) PO 20 gm TID NO Administration Multivitamins/Minerals/Vitamin C 1 tab 12/08/16 10:00 12/10/16 09:05 Tab-A-Vit - PO 1 tab DAILY NO Administration Pancrelipase 4 cap 12/08/16 08:00 12/10/16 09:05 Sidney Apple 6,000 Units Capsule PO 4 cap 0800 NO Administration Pantoprazole Sodium 40 mg 12/08/16 10:00 12/10/16 09:05 Protonix - PO 40 mg DAILY NO Administration Prednisolone Acetate 1 drop 12/08/16 10:00 12/10/16 09:06 Pred Forte 1% - OU 1 drop DAILY NO Administration Rifaximin 550 mg 12/08/16 10:00 12/10/16 09:06 Xifaxan - PO 550 mg DAILY NO Administration Spironolactone 50 mg 12/08/16 10:00 12/10/16 10:37 Aldactone - PO 50 mg DAILY NO Administration Tamsulosin HCl 0.4 mg 12/08/16 08:30 12/10/16 09:05 Flomax - PO 0.4 mg DAILY@0830 NO Administration Thrombocytopenia/coagulopathy/low WBC from the underlying liver failure. close to his baseline supportive care if platelets fall <20, will transfuse US abdomen is reviewed no fluid to be drained. if any procedure planned will reverse coagulopathy d.c planning per primary team Problem List - Problems (1) Thrombocytopenia Code(s): D69.6 - THROMBOCYTOPENIA, UNSPECIFIED (2) Hepatic encephalopathy Code(s): K72.90 - HEPATIC FAILURE, UNSPECIFIED WITHOUT COMA (3) Chronic liver disease Code(s): K76.9 - LIVER DISEASE, UNSPECIFIED (4) Liver cancer Code(s): C22.9 - MALIG NEOPLASM OF LIVER, NOT SPECIFIED PRIMARY OR SEC (5) Hyperammonemia Code(s): E72.20 - DISORDER OF UREA CYCLE METABOLISM, UNSPECIFIED (6) Hyperglycemia Code(s): R73.9 - HYPERGLYCEMIA, UNSPECIFIED
--- NOTE | 2016-12-10 22:03 | PN ---
Progress Note, Physician - Current Medication List Current Medications: Active Medications Ferrous Sulfate (Feosol -) 325 mg PO DAILY [facility] Last Admin: 12/10/16 09:05 Dose: 325 mg Folic Acid (Folic Acid -) 1 mg PO DAILY [facility] Last Admin: 12/10/16 09:05 Dose: 1 mg Furosemide (Lasix -) 20 mg PO DAILY [facility] Last Admin: 12/10/16 10:37 Dose: 20 mg Insulin Aspart (Novolog Vial Sliding Scale -) 1 vial SQ ACHS [facility] PRN Reason: Protocol Last Admin: 12/10/16 21:59 Dose: 4 units Insulin Detemir (Levemir Vial) 10 units SQ AM [facility] Last Admin: 12/10/16 06:40 Dose: Not Given Lactulose (Cephulac (Oral Use)) 20 gm PO TID [facility] Last Admin: 12/10/16 21:59 Dose: 20 gm Multivitamins/Minerals/Vitamin C (Tab-A-Vit -) 1 tab PO DAILY [facility] Last Admin: 12/10/16 09:05 Dose: 1 tab Pancrelipase (Creon Dr 6,000 Units Capsule) 4 cap PO 0800 [facility] Last Admin: 12/10/16 09:05 Dose: 4 cap Pantoprazole Sodium (Protonix -) 40 mg PO DAILY [facility] Last Admin: 12/10/16 09:05 Dose: 40 mg Prednisolone Acetate (Pred Forte 1% -) 1 drop OU DAILY [facility] Last Admin: 12/10/16 09:06 Dose: 1 drop Rifaximin (Xifaxan -) 550 mg PO DAILY [facility] Last Admin: 12/10/16 09:06 Dose: 550 mg Spironolactone (Aldactone -) 50 mg PO DAILY [facility] Last Admin: 12/10/16 10:37 Dose: 50 mg Tamsulosin HCl (Flomax -) 0.4 mg PO DAILY@0830 [facility] Last Admin: 12/10/16 09:05 Dose: 0.4 mg - Objective Vital Signs: Vital Signs Temperature 99.2 F 12/10/16 18:00 Pulse Rate 75 12/10/16 18:00 Respiratory Rate 18 12/10/16 18:00 Blood Pressure 110/59 12/10/16 18:00 O2 Sat by Pulse Oximetry (%) 96 12/10/16 09:00 Labs: CBC, BMP 12/10/16 06:15 12/10/16 06:15 INR, PTT INR 1.85 (0.82-1.09) H 12/09/16 06:25 Fibrinogen 176.0 mg/dL (238-498) L 12/09/16 06:25 Problem List - Problems (1) Altered mental state Code(s): R41.82 - ALTERED MENTAL STATUS, UNSPECIFIED Qualifiers: Altered mental status type: somnolence Qualified Code(s): R40.0 - Somnolence; R40.0 - Somnolence (2) Hepatic encephalopathy Code(s): K72.90 - HEPATIC FAILURE, UNSPECIFIED WITHOUT COMA (3) Diabetes Code(s): E11.9 - TYPE 2 DIABETES MELLITUS WITHOUT COMPLICATIONS Qualifiers: Diabetes mellitus type: type 1 Diabetes mellitus complication status: without complication Qualified Code(s): E10.9 - Type 1 diabetes mellitus without complications; E10.9 - Type 1 diabetes mellitus without complications; E10.9 - Type 1 diabetes mellitus without complications; E10.9 - Type 1 diabetes mellitus without complications (4) Anemia Code(s): D64.9 - ANEMIA, UNSPECIFIED (5) Chronic liver disease Code(s): K76.9 - LIVER DISEASE, UNSPECIFIED (6) Thrombocytopenia Code(s): D69.6 - THROMBOCYTOPENIA, UNSPECIFIED (7) Dementia Code(s): F03.90 - UNSPECIFIED DEMENTIA WITHOUT BEHAVIORAL DISTURBANCE
[2016-12-11] MEDS: LACTULOSE 20 GM/30 ML UDC (FOR ORAL USE ONLY) PO SCH ×2 (06:26→15:11)
[2016-12-11] MEDS: INSULIN DETEMIR 100 UNITS/ML MDV SQ SCH (06:26)
[2016-12-11] MEDS: INSULIN SLIDING SCALE (NOVOLOG) 1 VIAL SQ SCH ×2 (06:27→12:04)
[2016-12-11] MEDS ORDERED: INSULIN (NOVOLOG) ASPART 100 UNITS/ML 10ML VIAL ONE (06:53)
[2016-12-11] MEDS ORDERED: PT OWN MED DRAWER 7, Y5N ONE (09:52)
[2016-12-11] MEDS: FUROSEMIDE 20 MG TABLET (FP) PO SCH (09:55)
[2016-12-11] MEDS: PANTOPRAZOLE 40 MG TABLET (FP) PO SCH (09:55)
[2016-12-11] MEDS: MULTIVITAMINS (DAILY MVI) TABLET (FP) PO SCH (09:55)
[2016-12-11] MEDS: FOLIC ACID 1 MG TABLET (FP) PO SCH (09:55)
[2016-12-11] MEDS: FERROUS SO4 325 MG TABLET (FP) PO SCH (09:56)
[2016-12-11] MEDS: SPIRONOLACTONE 25 MG TABLET (FP) PO SCH (09:56)
[2016-12-11] MEDS: TAMSULOSIN HCL 0.4 MG CAP.ER.24H (FP) PO SCH (09:56)
[2016-12-11] MEDS: RIFAXIMIN 550 MG TABLET (UD) PO SCH (09:57)
[2016-12-11] MEDS: prednisoLONE ACETATE 1% OPHTH SUSP 5 ML BOTTLE OU SCH (09:57)
[2016-12-11] MEDS: LIPASE/PROTEASE/AMYLASE 6,000 UNIT CAPSULE PO SCH (11:36)
[2016-12-11 15:33] VITALS: BP 106/63; PULSE 68; TEMP 97
== END 2016-12-11 15:49 | disposition home health service (06) | DRG 442 ==
LOC: JER 16:38 → JERBED 19:23 → J5S 12-08 01:48
PROVIDERS: ADMIT Internal Medicine; ATTEND Internal Medicine
DX: K72.90 Hepatic failure, unspecified without coma (principal); D68.9 Coagulation defect, unspecified; C22.9 Malignant neoplasm of liver, not specified as primary or secondary; R18.8 Other ascites; R41.82 Altered mental status, unspecified; D64.9 Anemia, unspecified; D69.6 Thrombocytopenia, unspecified; G30.9 Alzheimer's disease, unspecified; F02.80 Dementia in other diseases classified elsewhere, unspecified severity, without behavioral disturbance, psychotic disturbance, mood disturbance, and anxiety; Z87.891 Personal history of nicotine dependence; N40.0 Benign prostatic hyperplasia without lower urinary tract symptoms; K74.60 Unspecified cirrhosis of liver; I10 Essential (primary) hypertension; E78.5 Hyperlipidemia, unspecified; E11.65 Type 2 diabetes mellitus with hyperglycemia
CPT/HCPCS: 36415; 71020-TC; 76700-TC; 80053; 81003; 82009; 82140; 82607; 82746; 82803; 83605; 83690; 83735; 83880; 84100; 84443; 84484; 85025; 85384; 85610; 85730; 86850; 86900; 86901; 87040; 87086; 93005; 93010; 97116-GP; 97161-GP; 99281-25